=== PATIENT | female | born 2000 | race African-American/Black ===

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

== ENCOUNTER → 2018-06-09 | Outpatient (CLI) | payer OTHER ==
[~2018-06-09] MED LIST changes: -CEFAZOLIN IV 2,000 MG in SYRINGE 0 ML IV SCH; -CITRIC ACID/SODIUM CITRATE 15 ML UDC PO SCH; +DOCU-94 PO; -LACTATED RINGER'S 1000ML 1,000 ML IV SCH
== END | disposition home or self-care (01) ==
LOC: C.LABSPEC 15:57
PROVIDERS: ATTEND Obstetrics & Gynecology
DX: N91.2 Amenorrhea, unspecified (principal)

== ENCOUNTER 2019-12-20 05:44 | Inpatient (IN) ==
--- NOTE | 2019-12-18 15:25 | History & Physical Report ---
Date of Service December 18, 2019 Assessment & Plan (1) Previous delivery affecting , antepartum: Repeat section. The patient was counseled to the nature of the procedure including alternatives such as labor. Risks were discussed including bleeding infection injury to bowel bladder ureter vessels and even baby. The risks of internal organ injury were discussed as being higher with prior sections. Deep Vein Thrombosis, pulmonary embolus and breakdown of the incision discussed. Deep vein thrombosis pulmonary embolus hernia and failure of the incision to heal were discussed Patient verbalized understanding of this and was given ample time to ask qu estions History of Present Illness Chief Complaint: wishes repeat C/S. this will be her 3rd C/S. had thought about a tubal but she really is unsure, so I have discouraged this as to avoid regret. GDM with questionable BSG checking. Concern initially for IUGR, but this was later found not to be true. Primary Care Provider: NO PCP Allergies Allergy/AdvReac Type Severity Reaction Status Date / Time taylor Allergy Intermediate LIP/THROAT Verified 12/15/19 09:14 SWELLING mold Allergy Intermediate ITCHY Verified 12/15/19 09:14 EYES, RUNNY NOSE cat dander Allergy Mild ITCHY EYES Verified 12/15/19 09:14 lamotrigine Allergy Mild rash Verified 12/15/19 09:14 guanfacine AdvReac Intermediate BECOME OCD Verified 12/15/19 09:14 Dust Allergy Intermediate ITCHY Uncoded 09/16/19 22:46 EYES, RUNNY NOSE Home Medications Home Medications Medication Instructions Recorded Confirmed Type albuterol sulfate 90 mcg/actuation 1 - 2 puff INHALATION DIRECTED 05/21/19 12/15/19 History aerosol inhaler PRN #1 gm PNV [id number] 1 tab PO DAILY 08/22/19 12/15/19 History [ Gummies] ferrous sulfate 325 mg PO DAILY 12/13/19 12/15/19 History Patient History Surgical History (Updated 08/30/19 @ 09:03 by Daniel Carmichael Jr, MD, FACOG) S/P section Social History Preferred Language: [place] Ic [employer]er Standard Cells Required: No Beliefs That Will Affect Care: None marital status: Single Current Living Situation: Alone other: adopted Feels Safe at Home: Yes Smoking Status: Former smoker packs per day: 0.5 ; Hx Alcohol Use: Yes Hx Substance Use: Yes substance use type: marijuana Substance Use Type Other:: history not during pregancy Physical Exam Constitutional: WD/WN, vitals as above Respiratory: normal respiratory effort, lungs clear to auscultation Cardiovascular: RRR, no murmur, no edema Gastrointestinal (Abdomen): normal bowel sounds, soft, nontender, no hepatosplenomegaly Genitourinary: OB Exam Abdomen: + fundal height, + heart tones (134) and + vertex OB Exam Monitor Tracing: + external FHT monitor used Coding Level of Care Code None Diagnoses Previous delivery affecting , antepartum O34.219
[2019-12-20] MEDS ORDERED: LACTATED RINGER'S 1,000 ML IV SCH ×2 (05:45→06:00)
[2019-12-20] MEDS ORDERED: SODIUM CHLORIDE 0.9% 250 ML IV PRN (05:50)
[2019-12-20] MEDS ORDERED: CEFAZOLIN 2,000 MG in SYRINGE 0 ML IV SCH (06:00)
[2019-12-20] MEDS ORDERED: CITRIC ACID/SODIUM CITRATE 15 ML UDC PO SCH (06:00)
[2019-12-20 06:17] LABS: Basophils # (auto) 0.01 K/uL (0-0.2); Basophils % (auto) 0.2 %; Eosinophils # (auto) 0.13 K/uL (0-0.5); Eosinophils % (auto) 2.2 %; Hematocrit (blood only) 31.7 % (37-47); Hemoglobin 10.8 g/dL (12.0-16.0); Immature Granulocytes # (auto) 0.02 K/uL (0.00-0.02); Immature Granulocytes % (auto) 0.3 %; Lymphocytes # (auto) 1.64 K/uL (1.2-3.4); Mean Corpuscular Hemoglobin 26.5 pg (25-34); Mean Corpuscular Volume 77.7 fL (80-100); Mean Platelet Volume 9.3 fL (7.4-10.4); Monocytes # (auto) 0.43 K/uL (0.11-0.59); Monocytes % (auto) 7.3 %; Neutrophils # (auto) 3.63 K/uL (1.4-6.5); Platelet Count 201 K/uL (130-400); RDW Coefficient of Variation 14.8 % (11.5-14.5); RDW Standard Deviation 42.2 fL (36.4-46.3); Red Blood Count 4.08 M/uL (4.2-5.4); White Blood Count 5.86 K/uL (4.8-10.8)
[2019-12-20 06:18] LABS: Mean Corpuscular Hgb Conc 34.1 g/dL (32-36)
--- NOTE | 2019-12-20 07:20 | History & Physical Bridge Note ---
Date of Service December 20, 2019 History & Physical Bridge Note I have examined the patient, reviewed the History & Physical and in the interval since the performance of the History & Physical I have noted the following changes of clinical significance: no changes noted
--- NOTE | 2019-12-20 07:27 | Anesthesiology Consultation ---
Date of Service December 20, 2019 Assessment & Plan Chart Review Chart Review: Acceptable Risk for Surgery Consults Requested none History Surgery Operation Date: 12/20/19 07:30 Proposed Procedures p Section in LD - J. Mikel Peralta MD, FACOG Height/Weight Height: 5 ft 3 in Weight: 97.976 kg Allergies Allergy/AdvReac Type Severity Reaction Status Date / Time taylor Allergy Intermediate LIP/THROAT Verified 12/15/19 09:14 SWELLING mold Allergy Intermediate ITCHY Verified 12/15/19 09:14 EYES, RUNNY NOSE cat dander Allergy Mild ITCHY EYES Verified 12/15/19 09:14 lamotrigine Allergy Mild rash Verified 12/15/19 09:14 guanfacine AdvReac Intermediate BECOME OCD Verified 12/15/19 09:14 Dust Allergy Intermediate ITCHY Uncoded 09/16/19 22:46 EYES, RUNNY NOSE Medications Home Medications Medication Instructions Recorded Confirmed Last Taken albuterol sulfate 90 mcg/actuation 1 - 2 puff INHALATION DIRECTED 05/21/19 12/20/19 Unknown aerosol inhaler PRN #1 gm PNV [id number] 1 tab PO DAILY 08/22/19 12/20/19 12/19/19 08:00 [ Gummies] ferrous sulfate 325 mg PO DAILY 12/13/19 12/20/19 12/19/19 08:00 Active Medications Generic Name Dose Route Start Last Admin Trade Name Freq PRN Reason Stop Dose Admin Lactated Ringer's 1,000 mls @ 999 mls/hr 12/20/19 06:00 12/20/19 06:10 Lr IV 12/20/19 15:00 999 mls/hr .Q1H1M GEORGE Administration NPO Date Last Intake of Fluids: 12/20/19 Time Last Intake of Fluids: 05:30 Date Last Intake of Solids: 12/19/19 Time Last Intake of Solids: 18:30 Social History Smoking Status: Former smoker Hx Alcohol Use: Yes Hx Substance Use: Yes substance use type: marijuana Substance Use Type Other:: history not during pregancy Physical Exam Vital Signs Last Vital Signs Temp 36.3 C L 12/20/19 07:16 Pulse 98 H 12/20/19 07:16 Resp 20 12/20/19 07:16 BP 146/67 H 12/20/19 07:16 Testing Laboratory Results 12/20/19 05:54 Blood Type O Positive 12/20/19 05:54 Antibody Screen NEGATIVE 12/20/19 05:54
[2019-12-20] MEDS ORDERED: DiphenhydrAMINE HCL 50 MG/ML VIAL IV PRN (07:28)
[2019-12-20] MEDS ORDERED: NALBUPHINE HCL INJ 10 MG/ML AMP IV PRN (07:28)
[2019-12-20] MEDS ORDERED: MoRPHine SULFATE PF 1 MG/ML 10 ML AMP/VIAL INT SPINAL ONE (07:28)
[2019-12-20] MEDS ORDERED: ONDANSETRON INJ 2 MG/ML 2 ML VIAL IV PRN (07:28)
[2019-12-20] MEDS ORDERED: LACTATED RINGER'S 500 ML IV PRN (07:28)
[2019-12-20] MEDS ORDERED: NALOXONE HCL 0.08 MG in SYRINGE 1.8 ML IV PRN (07:28)
[2019-12-20] MEDS ORDERED: NALOXONE HCL 1 MG in SODIUM CHLORIDE 0.9% 1000ML 1,000 ML IV PRN (07:28)
[2019-12-20] MEDS ORDERED: NALOXONE HCL 0.4 MG/1 ML VIAL/CARP IV PRN (07:28)
[2019-12-20] MEDS ORDERED: ePHEDrine sulfate 50 MG/ML AMP IV PRN (07:28)
[2019-12-20] MEDS ORDERED: MoRPHine SULFATE 2 MG/ML CARP IV PRN (07:28)
[2019-12-20] MEDS ORDERED: HYDROmorphone INJ 0.5 MG/0.5 ML SYR IV PRN (07:28)
[2019-12-20] MEDS ORDERED: MEPERIDINE HCL 25 MG/ML CARP IV PRN (07:28)
[2019-12-20] MEDS ORDERED: NO NARCOTICS OR SEDATIVES SCH (07:30)
[2019-12-20] MEDS ORDERED: SODIUM CHLORIDE 0.9% 1000ML 1,000 ML IV SCH (07:30)
[2019-12-20] MEDS ORDERED: DC INTRASPINAL MORPHINE SCH (07:30)
[2019-12-20] MEDS ORDERED: ePHEDrine sulfate 50 MG/ML AMP ONE (07:32)
[2019-12-20] MEDS ORDERED: MoRPHine SULFATE PF 1 MG/ML 10 ML AMP/VIAL ONE (07:32)
[2019-12-20] MEDS ORDERED: OXYTOCIN 10 UNITS/ML VIAL ONE ×3 (07:32→08:11)
[2019-12-20 08:40] LABS: Base Excess Cord Arterial Bld -0.7 mEq/L (-9-1.8); CO2 Cord Arterial Blood 63 mmHg (39.1-73.5); HCO3 Cord Arterial Blood 28 mmol/L (19.7-28.5); PO2 Cord Arterial Blood 20 mmHg (4.1-31.7); pH Cord Arterial Blood 7.26 (7.1-7.38)
[2019-12-20 08:44] LABS: Base Excess Cord Venous Blood -1.4 mEq/L (-7.7-1.9); Cord Venous Blood HCO3 24 mmol/L (18.4-26.8); Cord Venous Blood PCO2 43 mmHg (30.4-57.2); Cord Venous Blood PO2 40 mmHg (14.1-43.3); Cord Venous Blood pH 7.37 (7.20-7.44); Oxygen Sat Cord Arterial Blood < 60.0 % (<60)
--- NOTE | 2019-12-20 08:44 | Operative Report ---
PG Post Operative Report Pre & Post Diagnosis Operation Date: 12/20/19 07:30 Pre-Op Diagnosis: repeat section gestational diabetes 39 completed weeks gestation Post-Op Diagnosis: low transverse uterine cesearean section delivery for viable female infant at 0810 I identified the patient and participated in the time-out.: Yes Procedure Operation Date: 12/20/19 07:30 Actual Procedures p Section for viable female in at 0810(Not Applicable) - Johanna Peralta MD, FACOG Surgeon Johanna Peralta MD, FACOG Production Assembly Operator Dr. Underwood Estimated Blood Loss 600 Findings Consistent with Post-Op Diagnosis Specimens cord gases and blood Description of Procedure Regional anesthetic was given by anesthesia patient had a Garcia catheter inserted by nursing patient was prepped and draped in supine position with a leftward tilt preoperative antibiotics were given timeout performed Pickups with teeth were used to test the skin site and it was found adequate for incision scalpel used to make a Pfannenstiel incision over the prior one cutting down through subcutaneous fat through the fascia fascia was then dissected laterally with the curved Gilmore's fascia was released superiorly and inferiorly from the rectus muscles with the curved Gilmore scissors, rectus muscle split peritoneal cavity entered in a superior location. Opening enlarged to allow exposure bladder retractor placed Metzenbaums used to dissect away the bladder flap low segment transverse incision made on the uterus with scalpel. IT SHOULD BE NOTED THE LOWER SEGMENT WAS KYUNG THIN. Entry was done bluntly with the solder deposit operator's finger hysterotomy incision extended with the solder deposit operator's finger in the usual fashion baby was delivered then by flexion of the head and pressure from the web production assistant on the abdomen mouth and then nares were suctioned baby was then delivered fully without difficulty without excessive force live vigorous cord clamped and cut cord gases obtained cord blood obtained placenta removed manually within ensured all placenta removed with a moist lap sponge uterus exteriorized IV Pitocin had been started by anesthesia and uterine tone improved. The uterus was closed in 2 layers first layer and 0 Monocryl running locked second layer 0 Monocryl nonlocked after generous irrigation and suction of the cul-de-sac and bladder flap regions hemostasis was excellent uterus was placed back in the peritoneal cavity and hemostasis was excellent rectus muscles were inspected and found to be dry fascia closed with 0 Vicryl subcutaneous fat closed with 3-0 Vicryl prior to this subcutaneous fat was irrigated skin closed with 4-0 subcuticular Monocryl incision Steri-Stripped urine was clear at the end of the procedure I attest to the content of the Intraoperative Record and any orders documented therein. Any exceptions are noted below.
[2019-12-20] MEDS ORDERED: ONDANSETRON INJ 2 MG/ML 2 ML VIAL ONE (08:57)
[2019-12-20] MEDS ORDERED: BENZOCAINE 20% AER SPR 82.5 GM CAN EXT PRN (09:51)
[2019-12-20] MEDS ORDERED: SENNA 8.6 MG TAB PO PRN (09:51)
[2019-12-20] MEDS ORDERED: DIPHTHERIA/TETANUS/PERTUSSIS 0.5 ML SYR/VIAL IM ONE (09:51)
[2019-12-20] MEDS ORDERED: MAGNESIUM HYDROXIDE SUSP 30 ML UDC PO PRN (09:51)
[2019-12-20] MEDS ORDERED: SUPERCREAM 0.870% 15 GM JAR EXT PRN (09:51)
[2019-12-20] MEDS ORDERED: HYDROCORTISONE ACETATE 25 MG SUPP PR PRN (09:51)
[2019-12-20] MEDS: OXYTOCIN 30 UNITS in LACTATED RINGER'S 1,000 ML IV SCH ×2 (10:06→19:14)
[2019-12-20] MEDS: KETOROLAC 30 MG/ML VIAL IV PRN ×2 (10:26→16:55)
[2019-12-20] MEDS ORDERED: PROMETHAZINE HCL 12.5 MG in SODIUM CHLORIDE 0.9% 50 ML IV PRN (12:03)
[2019-12-20] MEDS: SIMETHICONE 80 MG CHEW PO SCH ×3 (12:42→20:26)
--- NOTE | 2019-12-20 15:06 | Anesthesiology Progress Note ---
Date of Service December 20, 2019 Anesthesia Post Procedure Vital Signs Vital Signs: Temp Pulse Pulse Resp BP BP Pulse Ox 12/20/19 14:00 36.8 C 71 18 136/69 97 12/20/19 12:30 94 H 16 124/77 97 12/20/19 11:30 36.5 C 90 16 127/63 94 12/20/19 11:15 98 H 98 12/20/19 11:13 100 H 118/59 L 12/20/19 11:10 94 H 97 12/20/19 11:05 107 H 96 12/20/19 11:02 102 H 103/57 L 12/20/19 11:00 98 H 97 12/20/19 10:55 109 H 97 12/20/19 10:53 114 H 111/56 L 12/20/19 10:50 108 H 98 12/20/19 10:45 86 97 12/20/19 10:40 101 H 99 12/20/19 10:35 104 H 98 12/20/19 10:32 97 H 135/62 12/20/19 10:30 105 H 97 12/20/19 10:27 105 H 94 12/20/19 10:25 105 H 98 12/20/19 10:22 112 H 152/69 H 12/20/19 10:20 106 H 18 99 12/20/19 10:15 99 H 95 12/20/19 10:11 105 H 155/80 H 12/20/19 10:10 103 H 96 12/20/19 10:05 107 H 98 12/20/19 10:01 100 H 154/82 H 12/20/19 10:00 109 H 97 12/20/19 09:55 109 H 96 12/20/19 09:52 110 H 164/80 H 12/20/19 09:50 36.4 C L 110 H 16 100 12/20/19 09:45 108 H 98 12/20/19 09:44 108 H 94 12/20/19 09:42 111 H 159/85 H 12/20/19 09:40 110 H 20 98 12/20/19 09:35 108 H 97 12/20/19 09:32 112 H 150/72 H 12/20/19 09:30 115 H 98 12/20/19 09:25 107 H 97 02/24/20 09:22 109 H 158/70 H 12/20/19 09:20 115 H 18 98 12/20/19 09:15 109 H 97 12/20/19 09:12 110 H 121/57 L 12/20/19 09:10 110 H 18 98 12/20/19 09:05 104 H 98 12/20/19 09:03 106 H 126/60 12/20/19 09:00 100 H 20 97 12/20/19 08:55 106 H 97 12/20/19 08:52 107 H 136/62 12/20/19 08:50 36.4 C L 20 12/20/19 07:16 36.3 C L 98 H 20 146/67 H 12/20/19 06:04 95 H 133/60 12/20/19 06:00 36.7 C 18 Pulse Ox 12/20/19 14:00 12/20/19 12:30 12/20/19 11:30 94 12/20/19 11:15 12/20/19 11:13 12/20/19 11:10 12/20/19 11:05 12/20/19 11:02 12/20/19 11:00 12/20/19 10:55 12/20/19 10:53 12/20/19 10:50 12/20/19 10:45 12/20/19 10:40 12/20/19 10:35 12/20/19 10:32 12/20/19 10:30 12/20/19 10:27 12/20/19 10:25 12/20/19 10:22 12/20/19 10:20 12/20/19 10:15 12/20/19 10:11 12/20/19 10:10 12/20/19 10:05 12/20/19 10:01 12/20/19 10:00 12/20/19 09:55 12/20/19 09:52 12/20/19 09:50 12/20/19 09:45 12/20/19 09:44 12/20/19 09:42 12/20/19 09:40 12/20/19 09:35 12/20/19 09:32 12/20/19 09:30 12/20/19 09:25 12/20/19 09:22 12/20/19 09:20 12/20/19 09:15 12/20/19 09:12 12/20/19 09:10 12/20/19 09:05 12/20/19 09:03 12/20/19 09:00 12/20/19 08:55 12/20/19 08:52 12/20/19 08:50 12/20/19 07:16 12/20/19 06:04 12/20/19 06:00 Pain Intensity Bilateral Abdomen: Pain Intensity: 2 Transfer of Care Handoff Completed per policy Notes Mental Status: alert / awake / arousable and participated in evaluation Patient Amnestic to Procedure: Yes Nausea / Vomiting: improving with treatment Pain: adequately controlled Airway Patency, RR, SpO2: stable & adequate BP & HR: stable & adequate Hydration State: stable & adequate Anesthetic Complications: no major complications apparent
[2019-12-20] MEDS: DOCUSATE SODIUM 100 MG CAP PO SCH (20:26)
[2019-12-21] MEDS: KETOROLAC 30 MG/ML VIAL IV PRN (00:51)
[2019-12-21] MEDS ORDERED: DiphenhydrAMINE HCL 50 MG/ML VIAL IV PRN (01:28)
[2019-12-21] MEDS ORDERED: ONDANSETRON INJ 2 MG/ML 2 ML VIAL IV PRN (01:28)
[2019-12-21] MEDS ORDERED: KETOROLAC 30 MG/ML VIAL IV PRN (01:28)
[2019-12-21] MEDS ORDERED: PROMETHAZINE HCL 25 MG in SODIUM CHLORIDE 0.9% 50 ML IV PRN (01:28)
[2019-12-21] MEDS ORDERED: MEPERIDINE HCL 50 MG/ML CARP IV PRN (01:28)
--- NOTE | 2019-12-21 05:53 | Obstetrical Progress Note ---
Date of Service <Rajat Underwood MD - Last Filed: 12/21/19 07:15> December 21, 2019 Assessment & Plan <Rajat Underwood MD - Last Filed: 12/21/19 07:15> (1) Previous delivery affecting , antepartum: POD#1 - continue routine care - encourage ambulation, and oral intake - will have follow-up in 6 weeks Subjective <Rajat Underwood MD - Last Filed: 12/21/19 07:15> Ms. Ragland is a 19 y/o female ; POD #1 following delivery at 39+ weeks; doing well this morning; having minimal abdominal cramping/pain; voiding well; tolerating meals overnight; and able to ambulate some Review of Systems Constitutional: denies fever; chills; sweats; headache Respiratory: denies shortness of breath, difficulty breathing Cardiac: denies chest pain; palpitations; chest pressure Breast: denies breast pain : denies dysuria Physical Exam <Rajat Underwood MD - Last Filed: 12/21/19 07:15> General: alert; oriented; no acute distress Cardiac: RRR; no m/g/r Respiratory: CTAB a/p; no wheezes/rales/rhonchi; no increased work of breathing; symmetrical chest rise; no respiratory distress Abdomen: soft; NT/ND; bowel sounds positive; incision warm, dry, and intact without erythema or exudate Uterus: uterine fundus firm; palpable 1cm below umbilicus Lower extrem: no lower extremity edema or swelling; no deep calf pain; Bobby's sign negative b/l Results & Data <Rajat Underwood MD - Last Filed: 12/21/19 07:15> Vital Signs (Past 12 Hours) Vital Signs Temp Pulse Resp BP Pulse Ox 12/21/19 04:00 36.8 C 72 20 126/68 12/21/19 01:00 18 95 12/21/19 00:00 36.7 C 68 20 126/84 96 12/20/19 23:00 20 95 12/20/19 22:00 20 95 12/20/19 21:00 18 96 12/20/19 20:30 20 97 12/20/19 19:30 36.7 C 77 18 112/61 96 12/20/19 18:30 18 94 Laboratory Results 12/20/19 12/20/19 12/20/19 Range/Units 08:10 08:10 05:54 Cord ABG pH 7.26 (7.1-7.38) Cord ABG pCO2 63 (39.1-73.5) mmHg Cord ABG pO2 20 (4.1-31.7) mmHg Cord ABG HCO3 28 (19.7-28.5) mmol/L Cord ABG Base Excess -0.7 (-9-1.8) mEq/L Cord ABG O2 Sat < 60.0 (<60) % Cord VBG pH 7.37 (7.20-7.44) Cord VBG pCO2 43 (30.4-57.2) mmHg Cord VBG pO2 40 (14.1-43.3) mmHg Cord VBG HCO3 24 (18.4-26.8) mmol/L Cord VBG Base Excess -1.4 (-7.7-1.9) mEq/L Cord VBG O2 Sat 80.0 H (<68) % Barometric Pressure 732.8 732.7 mm/Hg Blood Gas Comments INFANT A A Blood Type O Positive Antibody Screen NEGATIVE Medications Administered Current Inpatient Medications Benzocaine (Dermoplast Pain Relieving [place]) 1 appln EXT UD PRN PRN Reason: use on skin as needed Stop: 01/19/20 09:50 Bisacodyl (Dulcolax) 5 mg PO 1999 [facility] Stop: 12/21/19 20:01 Bisacodyl (Dulcolax) 10 mg [place] PRN PRN PRN Reason: Constipation Stop: 01/21/20 08:43 Cocaine HCl (Supercream 0.870%) 1 gm EXT UD PRN PRN Reason: hemmorrhoidal inflammation Stop: 01/03/20 09:50 Diphenhydramine HCl (Benadryl Capsule) 25 mg PO QID PRN PRN Reason: Itching Stop: 01/20/20 01:27 Diphenhydramine HCl (Benadryl) 25 mg IV QID PRN PRN Reason: Itching Stop: 01/20/20 01:27 Docusate Sodium (Colace) 100 mg PO DAILY@08, [facility] Stop: 01/19/20 20:59 Last Admin: 12/20/19 20:26 Dose: 100 mg Documented by: Ferrous Sulfate (Feosol) 325 mg PO DAILY@08 [facility] Stop: 01/20/20 07:59 Hydrocortisone (Anusol Hc) 25 mg [place] BID PRN PRN Reason: Hemorrhoids Stop: 01/19/20 09:50 Promethazine HCl 25 mg/ Sodium (Chloride) 51 mls @ 204 mls/hr IV Q4H PRN PRN Reason: Nausea And Vomiting Stop: 01/20/20 01:27 Promethazine HCl 12.5 mg/ (Sodium Chloride) 50.5 mls @ 202 mls/hr IV Q4H PRN PRN Reason: Nausea And Vomiting Stop: 01/19/20 12:02 Last Admin: 12/20/19 12:40 Dose: 202 mls/hr Documented by: Ibuprofen (Motrin) 600 mg PO Q4H PRN PRN Reason: Pain Stop: 01/19/20 09:50 Last Admin: 12/21/19 06:00 Dose: 600 mg Documented by: Ketorolac Tromethamine (Toradol) 30 mg IV Q6H PRN PRN Reason: Pain Stop: 12/25/19 01:27 Magnesium Hydroxide (Milk Of Magnesia) 30 ml PO HS PRN PRN Reason: Constipation Stop: 01/19/20 09:50 Meperidine HCl (Demerol) 50 - 75 mg IV Q4H PRN PRN Reason: Pain Stop: 01/04/20 01:27 Ondansetron HCl (Zofran) 4 mg IV Q4H PRN PRN Reason: Nausea And Vomiting Stop: 01/20/20 01:27 Oxycodone/Acetaminophen (Percocet 5mg/325mg) 1 - 2 tab PO Q4H PRN PRN Reason: Pain Stop: 01/04/20 01:27 Last Admin: 12/21/19 05:59 Dose: 1 tab Documented by: Prenat Multivit/[place]/Iron/Folic Ac ( Vitamin) 1 tab PO DAILY@08 [facility] Stop: 01/20/20 07:59 Sennosides (Senokot) 17.2 mg PO HS PRN PRN Reason: Constipation Stop: 01/19/20 09:50 Simethicone (Mylicon) 80 mg PO DAILY@08,13,17,21 [facility] Stop: 01/19/20 12:59 Last Admin: 02/24/20 20:26 Dose: 80 mg Documented by: <Daniel Carmichael Jr, MD, FACOG - Last Filed: 12/21/19 07:41> Co-Signing Physician Notes Resident Physician Supervision Note: I was present with Dr. Underwood during the history and exam. I discussed the case with the resident and agree with the findings and plan as documented in the note. Any exceptions or clarifications are listed here: Routine care doing well. Documented By: Daniel Carmichael Jr, MD, FACOG Resident Activity Tracking <Rajat Underwood MD - Last Filed: 12/21/19 07:15> Resident Involvement: Resident Care Provided Care Provided: Adult Hospital Medicine
[2019-12-21] MEDS: OXYCODONE/ACETAMINOPHEN 5mg/325mg TAB PO PRN ×4 (05:59→20:28)
[2019-12-21] MEDS: IBUPROFEN 600 MG TAB PO PRN ×4 (06:00→20:28)
[2019-12-21 07:23] LABS: Basophils # (auto) 0.02 K/uL (0-0.2); Basophils % (auto) 0.3 %; Eosinophils # (auto) 0.18 K/uL (0-0.5); Eosinophils % (auto) 2.5 %; Hematocrit (blood only) 28.4 % (37-47); Hemoglobin 9.8 g/dL (12.0-16.0); Immature Granulocytes # (auto) 0.01 K/uL (0.00-0.02); Immature Granulocytes % (auto) 0.1 %; Lymphocytes # (auto) 1.58 K/uL (1.2-3.4); Lymphocytes % (auto) 22.1 %; Mean Corpuscular Hemoglobin 26.5 pg (25-34); Mean Corpuscular Hgb Conc 34.5 g/dL (32-36); Mean Corpuscular Volume 76.8 fL (80-100); Mean Platelet Volume 9.6 fL (7.4-10.4); Monocytes # (auto) 0.71 K/uL (0.11-0.59); Monocytes % (auto) 9.9 %; Neutrophils # (auto) 4.64 K/uL (1.4-6.5); Neutrophils % (auto) 65.1 %; Platelet Count 224 K/uL (130-400); RDW Coefficient of Variation 14.7 % (11.5-14.5); RDW Standard Deviation 41.7 fL (36.4-46.3); White Blood Count 7.14 K/uL (4.8-10.8)
[2019-12-21] MEDS: PRENATAL VITAMIN 1 TAB PO SCH (08:33)
[2019-12-21] MEDS: DOCUSATE SODIUM 100 MG CAP PO SCH ×2 (08:33→20:28)
[2019-12-21] MEDS: FERROUS SULFATE 325 MG TAB PO SCH (08:33)
[2019-12-21] MEDS: SIMETHICONE 80 MG CHEW PO SCH ×4 (08:33→21:01)
[2019-12-21] MEDS ORDERED: bisacodyL 5 MG TABEC PO SCH (20:00)
[2019-12-22] MEDS: IBUPROFEN 600 MG TAB PO PRN ×4 (00:33→21:12)
[2019-12-22] MEDS: OXYCODONE/ACETAMINOPHEN 5mg/325mg TAB PO PRN ×4 (00:34→21:13)
--- NOTE | 2019-12-22 06:12 | Obstetrical Progress Note ---
Date of Service <Rajat Underwood MD - Last Filed: 12/22/19 06:19> December 22, 2019 Assessment & Plan <Rajat Underwood MD - Last Filed: 12/22/19 06:19> (1) Previous delivery affecting , antepartum: POD#2 - continue routine care - encourage ambulation, and oral intake - will have follow-up in 6 weeks Subjective <Rajat Underwood MD - Last Filed: 12/22/19 06:19> Ms. Ragland is a 19 y/o female ; POD #2 following delivery at 39+ weeks; doing well this morning; having minimal abdominal cramping/pain; voiding well; tolerating meals overnight; and able to ambulate some Review of Systems Constitutional: denies fever; chills; sweats; headache Respiratory: denies shortness of breath, difficulty breathing Cardiac: denies chest pain; palpitations; chest pressure Breast: denies breast pain : denies dysuria Physical Exam <Rajat Underwood MD - Last Filed: 12/22/19 06:19> General: alert; oriented; no acute distress Cardiac: RRR; no m/g/r Respiratory: CTAB a/p; no wheezes/rales/rhonchi; no increased work of breathing; symmetrical chest rise; no respiratory distress Abdomen: soft; NT/ND; bowel sounds positive; incision warm, dry, and intact; without erythema, or tenderness Uterus: uterine fundus firm; palpable 3cm below umbilicus Lower extrem: no lower extremity edema or swelling; no deep calf pain; Bobby's sign negative b/l Results & Data <Rajat Underwood MD - Last Filed: 12/22/19 06:19> Vital Signs (Past 12 Hours) Vital Signs Temp Pulse Pulse Resp BP BP Pulse Ox 12/21/19 23:10 36.9 C 92 H 20 122/68 96 12/21/19 19:55 36.7 C 85 18 108/60 94 Laboratory Results 12/21/19 Range/Units 06:35 WBC 7.14 (4.8-10.8) K/uL RBC 3.70 L (4.2-5.4) M/uL Hgb 9.8 L (12.0-16.0) g/dL Hct 28.4 L (37-47) % MCV 76.8 L (80-100) fL MCH 26.5 (25-34) pg MCHC 34.5 (32-36) g/dL RDW Std Deviation 41.7 (36.4-46.3) fL RDW Coeff of Nan 14.7 H (11.5-14.5) % Plt Count 224 (130-400) K/uL MPV 9.6 (7.4-10.4) fL Immature Gran % (Auto) 0.1 % Neut % (Auto) 65.1 % Lymph % (Auto) 22.1 % [place] % (Auto) 9.9 % Eos % (Auto) 2.5 % Baso % (Auto) 0.3 % Immature Gran # (Auto) 0.01 (0.00-0.02) K/uL Neut # (Auto) 4.64 (1.4-6.5) K/uL Lymph # (Auto) 1.58 (1.2-3.4) K/uL [place] # (Auto) 0.71 H (0.11-0.59) K/uL Eos # (Auto) 0.18 (0-0.5) K/uL Baso # (Auto) 0.02 (0-0.2) K/uL Medications Administered Current Inpatient Medications Benzocaine (Dermoplast Pain Relieving [place]) 1 appln EXT UD PRN PRN Reason: use on skin as needed Stop: 01/19/20 09:50 Bisacodyl (Dulcolax) 10 mg [place] PRN PRN PRN Reason: Constipation Stop: 01/21/20 08:43 Cocaine HCl (Supercream 0.870%) 1 gm EXT UD PRN PRN Reason: hemmorrhoidal inflammation Stop: 01/03/20 09:50 Diphenhydramine HCl (Benadryl Capsule) 25 mg PO QID PRN PRN Reason: Itching Stop: 01/20/20 01:27 Diphenhydramine HCl (Benadryl) 25 mg IV QID PRN PRN Reason: Itching Stop: 01/20/20 01:27 Docusate Sodium (Colace) 100 mg PO DAILY@08,21 [facility] Stop: 01/19/20 20:59 Last Admin: 12/21/19 20:28 Dose: 100 mg Documented by: Ferrous Sulfate (Feosol) 325 mg PO DAILY@08 [facility] Stop: 01/20/20 07:59 Last Admin: 12/21/19 08:33 Dose: 325 mg Documented by: Hydrocortisone (Anusol Hc) 25 mg [place] BID PRN PRN Reason: Hemorrhoids Stop: 01/19/20 09:50 Promethazine HCl 25 mg/ Sodium (Chloride) 51 mls @ 204 mls/hr IV Q4H PRN PRN Reason: Nausea And Vomiting Stop: 01/20/20 01:27 Promethazine HCl 12.5 mg/ (Sodium Chloride) 50.5 mls @ 202 mls/hr IV Q4H PRN PRN Reason: Nausea And Vomiting Stop: 01/19/20 12:02 Last Admin: 12/20/19 12:40 Dose: 202 mls/hr Documented by: Ibuprofen (Motrin) 600 mg PO Q4H PRN PRN Reason: Pain Stop: 01/19/20 09:50 Last Admin: 12/22/19 04:55 Dose: 600 mg Documented by: Ketorolac Tromethamine (Toradol) 30 mg IV Q6H PRN PRN Reason: Pain Stop: 12/25/19 01:27 Magnesium Hydroxide (Milk Of Magnesia) 30 ml PO HS PRN PRN Reason: Constipation Stop: 01/19/20 09:50 Meperidine HCl (Demerol) 50 - 75 mg IV Q4H PRN PRN Reason: Pain Stop: 01/04/20 01:27 Ondansetron HCl (Zofran) 4 mg IV Q4H PRN PRN Reason: Nausea And Vomiting Stop: 01/20/20 01:27 Oxycodone/Acetaminophen (Percocet 5mg/325mg) 1 - 2 tab PO Q4H PRN PRN Reason: Pain Stop: 01/04/20 01:27 Last Admin: 12/22/19 04:55 Dose: 1 tab Documented by: [place] Multivit/[place]/Iron/Folic Ac ( Vitamin) 1 tab PO DAILY@08 [facility] Stop: 01/20/20 07:59 Last Admin: 12/21/19 08:33 Dose: 1 tab Documented by: Sennosides (Senokot) 17.2 mg PO HS PRN PRN Reason: Constipation Stop: 01/19/20 09:50 Simethicone (Mylicon) 80 mg PO DAILY@08,13,17,21 [facility] Stop: 01/19/20 12:59 Last Admin: 12/21/19 21:01 Dose: 80 mg Documented by: <Charo Richey MD, FACOG - Last Filed: 12/22/19 07:22> Co-Signing Physician Notes Resident Physician Supervision Note: I interviewed and examined the patient. Discussed with Dr. Underwood and agree with findings and plan as documented in the note. Any exceptions or clarifications are listed here: Doing well. Notes some right ankle discomfort, likely MS or swelling. Reassured. Plan d/c tomorrow. Routine care. Documented By: Charo Richey MD, FACOG Resident Activity Tracking <Rajat Underwood MD - Last Filed: 12/22/19 06:19> Resident Involvement: Resident Care Provided Care Provided: Adult Hospital Medicine
[2019-12-22] MEDS ORDERED: POLYETHYLENE (MIRALAX) 17 GM PACK PO PRN (07:23)
[2019-12-22] MEDS: SIMETHICONE 80 MG CHEW PO SCH ×4 (08:13→21:11)
[2019-12-22] MEDS: FERROUS SULFATE 325 MG TAB PO SCH (08:13)
[2019-12-22] MEDS: PRENATAL VITAMIN 1 TAB PO SCH (08:14)
[2019-12-22] MEDS: DOCUSATE SODIUM 100 MG CAP PO SCH ×2 (08:14→21:12)
[2019-12-22] MEDS ORDERED: bisacodyL 10 MG SUPP PR PRN (08:44)
[2019-12-22 09:34] LABS: Hemoglobin 10.3 g/dL (12.0-16.0)
--- NOTE | 2019-12-23 07:01 | Obstetrical Progress Note ---
Date of Service <Rajat Underwood MD - Last Filed: 12/23/19 07:57> December 23, 2019 Assessment & Plan <Rajat Underwood MD - Last Filed: 12/23/19 07:57> (1) Previous delivery affecting , antepartum: POD#3 - continue routine care - encourage ambulation, and oral intake - based off family history of clots, ordered duplex of b/l lower extremities - will have follow-up in [address] Peralta Subjective <Rajat Underwood MD - Last Filed: 12/23/19 07:57> Ms. Ragland is a 19 y/o female ; POD #3 following delivery at 39+ weeks; doing well this morning; having minimal abdominal cramping/pain, feels like she has some fullness in her abdomen that is consistent with how she feels when she has not had a bowel movement for a couple days; voiding well, passing gas; tolerating meals overnight; and able to ambulate around unit Review of Systems Constitutional: denies fever; chills; sweats; headache Respiratory: denies shortness of breath, difficulty breathing Cardiac: denies chest pain; palpitations; chest pressure Breast: denies breast pain : denies dysuria Physical Exam <Rajat Underwood MD - Last Filed: 12/23/19 07:57> General: alert; oriented; no acute distress Cardiac: RRR; no m/g/r Respiratory: CTAB a/p; no wheezes/rales/rhonchi; no increased work of breathing; symmetrical chest rise; no respiratory distress Abdomen: soft; NT/ND; bowel sounds positive; incision warm, dry, and intact, without erythema or exudate Uterus: uterine fundus firm; palpable 3cm below umbilicus Lower extrem: 1+ lower extremity edema; no deep calf pain; Bobby's sign negative b/l Results & Data <Rajat Underwood MD - Last Filed: 12/23/19 07:57> Vital Signs (Past 12 Hours) Vital Signs Temp Pulse Resp BP 12/22/19 23:30 36.6 C 92 H 20 123/75 12/22/19 20:55 36.8 C 93 H 16 131/74 Laboratory Results 12/22/19 Range/Units 09:21 Hgb 10.3 L (12.0-16.0) g/dL Hct 30.0 L (37-47) % Medications Administered Current Inpatient Medications Benzocaine (Dermoplast Pain Relieving [place]) 1 appln EXT UD PRN PRN Reason: use on skin as needed Stop: 01/19/20 09:50 Bisacodyl (Dulcolax) 10 mg [place] PRN PRN PRN Reason: Constipation Stop: 01/21/20 08:43 Cocaine HCl (Supercream 0.870%) 1 gm EXT UD PRN PRN Reason: hemmorrhoidal inflammation Stop: 01/03/20 09:50 Diphenhydramine HCl (Benadryl Capsule) 25 mg PO QID PRN PRN Reason: Itching Stop: 01/20/20 01:27 Diphenhydramine HCl (Benadryl) 25 mg IV QID PRN PRN Reason: Itching Stop: 01/20/20 01:27 Docusate Sodium (Colace) 100 mg PO DAILY@08,21 [facility] Stop: 01/19/20 20:59 Last Admin: 12/22/19 21:12 Dose: 100 mg Documented by: Ferrous Sulfate (Feosol) 325 mg PO DAILY@08 [facility] Stop: 01/20/20 07:59 Last Admin: 12/22/19 08:13 Dose: 325 mg Documented by: Hydrocortisone (Anusol Hc) 25 mg [place] BID PRN PRN Reason: Hemorrhoids Stop: 01/19/20 09:50 Promethazine HCl 25 mg/ Sodium (Chloride) 51 mls @ 204 mls/hr IV Q4H PRN PRN Reason: Nausea And Vomiting Stop: 01/20/20 01:27 Promethazine HCl 12.5 mg/ (Sodium Chloride) 50.5 mls @ 202 mls/hr IV Q4H PRN PRN Reason: Nausea And Vomiting Stop: 01/19/20 12:02 Last Admin: 12/20/19 12:40 Dose: 202 mls/hr Documented by: Ibuprofen (Motrin) 600 mg PO Q4H PRN PRN Reason: Pain Stop: 01/19/20 09:50 Last Admin: 12/22/19 21:12 Dose: 600 mg Documented by: Ketorolac Tromethamine (Toradol) 30 mg IV Q6H PRN PRN Reason: Pain Stop: 12/25/19 01:27 Magnesium Hydroxide (Milk Of Magnesia) 30 ml PO HS PRN PRN Reason: Constipation Stop: 01/19/20 09:50 Meperidine HCl (Demerol) 50 - 75 mg IV Q4H PRN PRN Reason: Pain Stop: 01/04/20 01:27 Ondansetron HCl (Zofran) 4 mg IV Q4H PRN PRN Reason: Nausea And Vomiting Stop: 01/20/20 01:27 Oxycodone/Acetaminophen (Percocet 5mg/325mg) 1 - 2 tab PO Q4H PRN PRN Reason: Pain Stop: 01/04/20 01:27 Last Admin: 12/22/19 21:13 Dose: 1 tab Documented by: Polyethylene Glycol (Miralax Powder Packet) 17 gm PO DAILY PRN PRN Reason: Constipation Stop: 01/21/20 07:22 Prenat Multivit/[place]/Iron/Folic Ac ( Vitamin) 1 tab PO DAILY@08 [facility] Stop: 01/20/20 07:59 Last Admin: 12/22/19 08:14 Dose: 1 tab Documented by: Sennosides (Senokot) 17.2 mg PO HS PRN PRN Reason: Constipation Stop: 01/19/20 09:50 Simethicone (Mylicon) 80 mg PO DAILY@08,13,17,21 [facility] Stop: 01/19/20 12:59 Last Admin: 12/22/19 21:11 Dose: 80 mg Documented by: <Dora Pablo MD, FACOG - Last Filed: 12/23/19 08:16> Co-Signing Physician Notes Resident Physician Supervision Note: I was present with Dr. Underwood during the history and exam. I discussed the case with the resident and agree with the findings and plan as documented in the note. Any exceptions or clarifications are listed here: pt doing well, eating voiding and ambulating. Constipated and feels a little bloated but passing gas and tolerating po. She is using percocet for pain meds. Aware to wean to off. Wants to go home. She notes bilateral calf pain and swelling on and off. She had a "knot" on one part of her lateral LE but now its gone. No cp or sob but expresses concern due to fam history of clots and pe and namely in her m om(after she gave ). Exam findings include abd--soft ff 2down nt, incision c/d/i with one remaining steri(she says others fell off in shower). LE are equal in size. No cord or erythema noted. Trace peripheral swelling. Will obtain duplex bilateral LE. Pt notes her sister has had a dvt and never been but she herself has never had dvt and this is her 3rd . Explained that even if the study today is negative and she goes home, she should call or return with any concerns and reviewed them at length. Routine instructions reviewed. f/u 6 wk pp check. script sent and ok on papdmp. Documented By: Dora Pablo MD, FACOG Resident Activity Tracking <Rajat Underwood MD - Last Filed: 12/23/19 07:57> Resident Involvement: Resident Care Provided Care Provided: OB Delivery
[2019-12-23] MEDS: IBUPROFEN 600 MG TAB PO PRN ×2 (07:06→15:11)
[2019-12-23] MEDS: OXYCODONE/ACETAMINOPHEN 5mg/325mg TAB PO PRN ×2 (07:07→15:12)
[2019-12-23] MEDS: SIMETHICONE 80 MG CHEW PO SCH ×2 (08:36→12:36)
[2019-12-23] MEDS: PRENATAL VITAMIN 1 TAB PO SCH (08:36)
[2019-12-23] MEDS: FERROUS SULFATE 325 MG TAB PO SCH (08:36)
[2019-12-23] MEDS: DOCUSATE SODIUM 100 MG CAP PO SCH (08:36)
[2019-12-23] MEDS ORDERED: POLYETHYLENE (MIRALAX) 17 GM PACK PO SCH (09:00)
--- NOTE | 2019-12-23 14:39 | Ultrasound Report ---
BILATERAL LOWER EXTREMITY VENOUS DOPPLER CLINICAL HISTORY: post- calf pain COMPARISON STUDY: No previous studies for comparison. TECHNIQUE: Sonography of the deep venous system of the bilateral lower extremities was performed. Co mpression and augmentation were evaluated. FINDINGS: The bilateral common femoral, superficial femoral and popliteal veins were compressible. A ugmentation was normal. Flow was shown within the deep calf vessels. IMPRESSION: No evidence of deep venous thrombus within the bilateral lower extremities. ACT 112: Negative or not required by law. Electronically signed by: Ambrosio Young M.D. 12/23/2019 2:37 PM
--- NOTE | 2019-12-24 16:58 | Discharge Summary ---
Date of Service December 24, 2019 Admission Exam (Per Admitting) Constitutional WD/WN, vitals as above Respiratory normal respiratory effort, lungs clear to auscultation Cardiovascular RRR, no murmur, no edema Gastrointestinal (Abdomen) normal bowel sounds, soft, nontender, no hepatosplenomegaly incision CDI ext neg Discharge Data Consultations 12/20/19 05:45 Consult Anesthesiology Stat Procedures Performed Operation Date: 12/20/19 07:30 Actual Procedures p Section for viable female in at 0810(Not Applicable) - Johanna Peralta MD, [facility] [place], [place] Hospital Course (1) Previous delivery affecting , antepartum: Postoperative from section patient meets discharge criteria as she is ambulating well tolerating an oral diet has minimal bleeding and no extremity pain. Discharge instructions were reviewed and prescriptions were sent to her pharmacy of choice patient advised to call with any concerns and follow-up in the office discussed Note, negative doppler prior to discharge on legs Coding Level of Care Code None Diagnoses Previous delivery affecting , antepartum O34.219
== END 2019-12-23 16:20 | disposition home or self-care (01) | DRG 788 ==
LOC: 4S1 05:44 → EDSTATUS 07:30 → 4S2 11:30

== ENCOUNTER 2022-02-06 06:20 | Inpatient (IN) ==
--- NOTE | 2022-02-04 11:06 | Anesthesiology Consultation ---
Date of Service February 04, 2022 Assessment & Plan (1) Encounter for pre-operative examination: Chart Review Chart Review: Acceptable Risk for Surgery -We will leave BSG date of procedure to anesthesiologist discretion (history of gestational diabetes) Per nursing assessment 02/01/2022, pt has traveled to [place], [place] in the past 30 days. Pt and her children currently have upper respiratory issues (pt chris michael has mild cough, congestion and runny nose- symptoms improving). Feels symptoms related to cold or allergies. Pt states her children were tested for Covid an were negative but does not know the date of Covid testing or location. Pt unsure if she has had Covid infection in the past 90 days- states Covid testing would have been done at [facility]- no noted Covid positive tests in the past 90 days in [facility] and [employer] system. Pt is NOT vaccinated for Covid. Pt initially told nursing she did not need preop Covid testing - after review of chart- pt with upper respiratory symptoms and no noted positive Covid test in the past 90 days- pt needs Covid test prior to - did discuss with OB office- they will reach out to patient to get preop Covid testing done prior to - will await results. Patient seen by cardiology 04/12/2021 = seen for history of chest pain and family history of cardiovascular disease. Patient with history of substernal sharp stabbing chest painshospital records reviewedEKG demonstrated NSR without acute changes. D-dimer was negative. Other labs unremarkable. CXR without acute process. Symptoms resolved with 1 dose of aspirin. Chest pain has been ongoing x2 years. Usually occurs at night when lying supine. ZIO monitor is currently pendingwill await these results. Recommend 2D echo to assess structural heart disease, LV function, valvular heart disease rule out congenital abnormalities. Also recommended CV genetic testing given diverse family history of cardiovascular issues. Her atypical chest pain does not appear to be cardiac related based on description and present for many years. Symptoms have characteristics suggestive of GERD. (No Zio monitor results scanned into system- patient never had ECHO or genetic testing done per review of [facility] records- did not follow back up with cardio) History Surgery Operation Date: 02/06/22 07:30 Proposed Procedures p Section in LD (Delivery of Baby through Abdominal Incision) - Mary Whitney MD s Post Tubal Ligation Labor & Deliv - Mary Whitney MD Height/Weight Height: 5 ft 2.5 in Weight: 102.058 kg Allergies Allergy/AdvReac Type Severity Reaction Status Date / Time cat dander Allergy Unknown ITCHY EYES Verified 02/06/22 06:31 taylor Allergy Unknown LIP/THROAT Verified 02/06/22 06:31 SWELLING lamotrigine Allergy Unknown rash Verified 02/06/22 06:31 mold Allergy Unknown ITCHY Verified 02/06/22 06:31 EYES, RUNNY NOSE guanfacine AdvReac Unknown BECOME OCD Verified 02/06/22 06:31 Dust Allergy Unknown ITCHY Uncoded 02/06/22 06:31 EYES, RUNNY NOSE Medications Home Medications Medication Instructions Recorded Confirmed Last Taken albuterol sulfate 90 mcg/actuation 1 - 2 puff INHALATION DIRECTED 05/21/19 02/05/22 Unknown aerosol inhaler PRN #1 gm [id number] 1 mg 1 tab PO DAILY 11/28/21 02/06/22 02/05/22 tablet Active Medications Generic Name Dose Route Start Last Admin Trade Name Freq PRN Reason Stop Dose Admin Lactated Ringer's 1,000 mls @ 999 mls/hr 02/06/22 06:15 02/06/22 06:30 Lr IV 02/06/22 07:15 999 mls/hr .[id number] GEORGE Administration Past Medical History Medical History Acid reflux ADHD Asthma CONTROLLED Back problem Bipolar disorder Depression Gestational diabetes Heartburn during History of COVID-19 - MUTLIPLE TIMES IN HX PER PT- NO NOTED POSITIVE COVID TESTS ON FILE IN [facility] AND [facility] IN THE PAST 90 DAYS - PT HAS MILD COUGH AND CONGESTION, RUNNY NOSE CURRENTLY- PT REPORTS BELIEVES SYMPTOMS TO BE UNRELATED TO HX COVID History of recent hospitalization ADMITTED TO [facility] 01/29/22 SECONDARY TO DECREASED MOVEMENT- FELT SECONDARY TO DEHYDRATION History of seizures as a child AGE 8, HX MEDS, LAST SEIZURE 8 YR OLD History of treatment by mental health professional PT REPORTS MULTIPLE MENTAL HEALTH HX DX ... 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 - SEEN BY [facility] CARDIO 03/2021- RECOMMENDED ECHO AND CV GENETIC TESTING (PRESUME D PT NEVER HAD DONE- NO RESULTS IN S). PER CARDIO NOTE 03/2021- HOLTER REPORT PENDING (NO RESULTS AVAILABLE) - NO FURTHER APPOINTMENTS DUE TO COVID 19 AND LEARNING MANAGER. Past medical history not known due to adoption PT ADOPTED, FAMILY MED HX KNOWLEDGE LIMITED Post-traumatic stress disorder SOB (shortness of breath) on exertion Past Family History Family History Mother Deep vein thrombosis Clotting disorder Pulmonary embolism Sister Deep vein thrombosis Heart disease Hypertension Grandmother Breast cancer Denies family history of Ovarian cancer Prostate cancer Colorectal cancer Past Surgical History Surgical History History of foot surgery RIGHT S/P section HX X3 Mcintire teeth removed Social History Smoking Status: Former smoker tobacco type: cigarettes Smoking End Date: BEFORE I WAS - QUIT SOON I FOUND OUT Hx Alcohol Use: No alcohol intake frequency: other Hx Substance Use: No substance use type: does not use Substance Use Type Other:: history not during pregancy Physical Exam Vital Signs Last Vital Signs Temp 36.8 C 02/06/22 06:32 Pulse 107 H 02/06/22 06:25 Resp 18 02/06/22 06:32 BP 134/72 02/06/22 06:25 Lab Results Anesthesia Preop Results Results Anesthesia Widget: WBC 5.19 K/uL (4.8-10.8) 02/06/22 Hgb 10.8 g/dL (12.0-16.0) L 02/06/22 Hct 31.6 % (37-47) L 02/06/22 Plt 270 K/uL (130-400) 02/06/22 Na 133 mmol/L (136-145) L 12/29/21 K 3.6 mmol/L (3.5-5.1) 12/29/21 Cl 104 mmol/L (98-107) 12/29/21 CO2 23 mmol/L (21-32) 12/29/21 BUN 5 mg/dl (6-23) L 12/29/21 Creat 0.52 mg/dl (0.6-1.2) L 12/29/21 POC Glucose 99 mg/dl (70-99) 02/06/22 Testing Laboratory Results 02/06/22 06:27 02/06/22 02/06/22 06:32 06:30 POC Glucose 99 235 H 02/05 covid negative Electrocardiogram Date: 12/29/21 Findings: + ST @ (127bpm ) Otherwise normal EKG per cardio. (Pt in ER at time of EKG- seen for chest pain that is worsened after eating- troponin negative, CTA negative, EKG showed no ischemic changes- tachycardia trended downwards with IV fluids - suspect chest discomfort is from gastritis per 12/29/21 ER note) Chest X-Ray Date: 04/03/21 Findings: + NAD 1 view CXR Other Testing Chest CTA 12/29/2021 = no evidence of pulmonary embolism. Subcentimeter axillary nodes were likely physiologic.
[~2022-02-06 06:20] MED LIST changes: +CITRIC ACID/SODIUM CITRATE 15 ML UDC PO SCH; -DOCU-94 PO; +LACTATED RINGER'S 1,000 ML IV SCH; -PRENTAB26 PO; +SODIUM CHLORIDE 0.9% 250 ML IV PRN; -VNTHFA/IN INH
[2022-02-06 06:44] LABS: Basophils # (auto) 0.01 K/uL (0-0.2); Basophils % (auto) 0.2 %; Eosinophils # (auto) 0.09 K/uL (0-0.5); Eosinophils % (auto) 1.7 %; Hematocrit (blood only) 31.6 % (37-47); Hemoglobin 10.8 g/dL (12.0-16.0); Lymphocytes # (auto) 1.42 K/uL (1.2-3.4); Lymphocytes % (auto) 27.4 %; Mean Corpuscular Hemoglobin 25.4 pg (25-34); Mean Corpuscular Hgb Conc 34.2 g/dL (32-36); Mean Corpuscular Volume 74.2 fL (80-100); Mean Platelet Volume 9.5 fL (7.4-10.4); Monocytes # (auto) 0.61 K/uL (0.11-0.59); Monocytes % (auto) 11.8 %; Neutrophils # (auto) 3.06 K/uL (1.4-6.5); Neutrophils % (auto) 58.9 %; Platelet Count 270 K/uL (130-400); RDW Coefficient of Variation 15.8 % (11.5-14.5); RDW Standard Deviation 42.9 fL (36.4-46.3); Red Blood Count 4.26 M/uL (4.2-5.4); White Blood Count 5.19 K/uL (4.8-10.8)
[2022-02-06] MEDS ORDERED: SODIUM CHLORIDE 0.9% 250 ML IV PRN (07:02)
[2022-02-06] MEDS ORDERED: MoRPHine SULFATE PF 1 MG/ML 10 ML AMP/VIAL ONE (07:08)
--- NOTE | 2022-02-06 07:20 | History & Physical Bridge Note ---
Date of Service February 06, 2022 History & Physical Bridge Note I have examined the patient, reviewed the History & Physical and in the interval since the performance of the History & Physical I have noted the following changes of clinical significance: no changes noted. Still desires Tubal Ligation.
[2022-02-06] MEDS ORDERED: METHYLERGONOVINE MALEATE 0.2 MG/ML AMP ONE (07:32)
[2022-02-06] MEDS ORDERED: MoRPHine SULFATE 2 MG/ML CARP IV PRN (07:44)
[2022-02-06] MEDS ORDERED: NALOXONE HCL 1 MG in SODIUM CHLORIDE 0.9% 1000ML 1,000 ML IV PRN (07:44)
[2022-02-06] MEDS ORDERED: LACTATED RINGER'S 500 ML IV PRN (07:44)
[2022-02-06] MEDS ORDERED: MoRPHine SULFATE PF 1 MG/ML 10 ML AMP/VIAL INT SPINAL ONE (07:44)
[2022-02-06] MEDS ORDERED: ePHEDrine sulfate 50 MG/ML AMP IV PRN (07:44)
[2022-02-06] MEDS ORDERED: NALOXONE HCL 0.4 MG/1 ML VIAL/CARP IV PRN (07:44)
[2022-02-06] MEDS ORDERED: PROMETHAZINE HCL 12.5 MG in SODIUM CHLORIDE 0.9% 50 ML IV PRN (07:44)
[2022-02-06] MEDS ORDERED: ONDANSETRON INJ 2 MG/ML 2 ML VIAL IV PRN (07:44)
[2022-02-06] MEDS ORDERED: NALOXONE HCL 0.08 MG in SYRINGE 1.8 ML IV PRN (07:44)
[2022-02-06] MEDS ORDERED: diphenhydrAMINE 50 MG/ML VIAL IV PRN (07:44)
[2022-02-06] MEDS ORDERED: DC INTRASPINAL MORPHINE SCH (07:45)
[2022-02-06] MEDS ORDERED: SODIUM CHLORIDE 0.9% 1000ML 1,000 ML IV SCH (07:45)
[2022-02-06] MEDS ORDERED: NO NARCOTICS OR SEDATIVES SCH (07:45)
[2022-02-06] MEDS ORDERED: OXYTOCIN 10 UNITS/ML 10ML VIAL ONE ×3 (07:58→08:38)
[2022-02-06] MEDS ORDERED: METOCLOPRAMIDE HCL INJ 5 MG/ML 2 ML VIAL ONE (07:58)
[2022-02-06] MEDS ORDERED: PROPOFOL IV EMULSION 10 MG/ML 20 ML VIAL IV ONE (07:58)
[2022-02-06] MEDS ORDERED: ePHEDrine sulfate 50 MG/ML SYR ONE (07:58)
[2022-02-06] MEDS ORDERED: LIDOCAINE 2% MPF LOCAL 5 ML VIAL INFIL ONE (07:58)
[2022-02-06] MEDS ORDERED: PHENYLEPHRINE 100MCG/ML 5ML SYR ONE (07:58)
[2022-02-06] MEDS ORDERED: ONDANSETRON INJ 2 MG/ML 2 ML VIAL ONE (07:58)
--- NOTE | 2022-02-06 09:17 | Operative Report ---
PG Post Operative Report Pre & Post Diagnosis Operation Date: 02/06/22 07:30 Pre-Op Diagnosis: History of Section, Desire for sterilization Post-Op Diagnosis: same plus uterine window I identified the patient and participated in the time-out.: Yes Procedure Operation Date: 02/06/22 07:30 Actual Procedures Low Transverse Repeat Section Tubal Ligation, Bilateral, Modified [place] method Surgeon Mary Whitney MD Information Technology Teacher Marline MCNAIR Estimated Blood Loss 500 Findings Consistent with Post-Op Diagnosis Specimens Placenta, Cord blood Anesthesia Type Spinal Complications none Description of Procedure The patient was placed operating table in the supine position with a leftward tilt. She was prepped and draped in standard sterile fashion. The anesthetic was tested and found to be adequate. A time-out was held, identifying correct patient, procedure, positioning and preoperative antibiotics. There were no concerns. A Pfannenstiel skin incision was made with a knife and taken down to the underlying layer of fascia. Significant scar tissue was encountered throughout the dissection. The fascia was incised in the midline with the knife and taken out laterally with scissors. The superior edge of the fascial incision was grasped, elevated and dissected off the underlying rectus both superiorly and inferiorly. The muscles were already noted to be in the midline. The peritoneum was also noted to be opened during the process of fascial dissection, as the midline area contained adhesions of fascia directly to peritoneum with no intervening muscle layer. Exploration with surgeons' fingers was used, along with cold sharp dissection, to free the fascia and create the usual Pfannensteil opening. The incision was then stretched to ensure adequate access for delivery. The bladder retractor was placed. The vesicouterine peritoneum was identified, entered with scissors and taken out laterally with scissors, then bluntly mobilized downward as a bladder flap. The lower uterine segment was ballooning and so thin that vernix and hair were easily visible prior to hysterotomy, through the extremely thin myometrium which remained. A hysterotomy incision was created transversely in the lower uterine segment, with entry to th e amnion being unavoidable on the first swipe with a scalpel, but due to the ballooning outward of the uterine wall, no risk of injury to the underlying structures was present. Clear amniotic fluid was encountered. The mechanical press operator's hand was used to elevate the head to the hysterotomy. The head was delivered using mild fundal pressure, and the shoulders and body followed. Due to the remarkably large size of the infant, some effort on the part of both delivering physicians was required; the head delivered easily with the usual arrangement of Dr. Whitney elevating the head and Dr. Horan applying fundal pressure, but delivery of the shoulders and body was only accomplished by Dr. Horan placing a finger under the anterior shoulder / axilla, while fundal pressure was applied from Dr. Whitney's side, and then Dr. Whitney delivered the posterior shoulder by reducing the patient's mons manually while Dr. Horan applied fundal pressure. The cord was clamped and cut and the was then handed off to the awaiting furnace reliner. Cord blood was obtained. The was ultimately found to weigh 11 lbs, 11 oz at . The placenta was expressed from the uterus, and was also noted to be of remarkable size and vascularity. The uterus was exteriorized and cleared of all clot and debris with moistened laparotomy sponges. The hysterotomy incision was repaired in two layers, the first in a running locked layer, the second in an imbricating layer. Milagros was applied. The ovaries and tubes were examined bilaterally, and ovaries were seen to be elongated/enlarged with a "tapioca pudding" appearance suggestive of PCOS. A modified Raymond tubal ligation was performed by elevating each fallopian tube using a Lane clamp, isolating a knuckle of tube using a double suture- ligature of 0-chromic, and excising the knuckle. The uterus was gently replaced in the abdomen, and the gutters were examined to confirm the tubal ligation sutures remained intact. A final inspection of the hysterotomy revealed good hemostasis. The rectus muscles were allowed to reapproximate naturally. The fascia was then reapproximated with 1 Vicryl in a running nonlocked manner. The fascia was examined and found to be free of defect following closure. The subcutaneous tissue was copiously irrigated and reapproximated with 0-chromic, then the skin edges were closed with 4-0 monocryl in a subcuticular fashion. A dermabond dressing was applied. The giron was found to be draining clear yellow urine at completion of the procedure. I attest to the content of the Intraoperative Record and any orders documented therein. Any exceptions are noted below. I attest to the content of the Intraoperative Record and any orders documented therein. Any exceptions are noted below.
--- NOTE | 2022-02-06 09:35 | Communication Note ---
Date of Service: February 06, 2022 Pt in postop recovery from RCS/BTL with very large infant this morning. RN notified me just now that patient is beginning to c/o cough, and has desaturated briefly to as low as upper 80%s, though this seemed to improve as she's sitting up. She notes the patient recently tested negative for COVID pre-op but asks if re-test with PCR is possible. Yes, I will send respiratory panel swab. However also note tachycardia, which is not unexpected in her current situation but could represent a sign of PE. This patient has a strong family history of throm botic disease. Although she personally has no convincing history of coagulopathy (a protein S workup done during was suggestive of deficiency but also not valid due to being done during ), she is recommended for prophylactic postoperative lovenox by heme-onc. She is obese and has plenty of risk factors for PE even without a known coagulopathy. I do not want to move her to CT in the immediate postop recovery if avoidable, so will start with stat portable EKG and LE dopplers. Patient also has a personal h/o asthma for which a prn albuterol inhaler is listed in her home meds, and this was ordered for her to be given now to see if that provides some relief.
[2022-02-06] MEDS ORDERED: BENZOCAINE 20% AER SPR 82.5 GM CAN EXT PRN (09:39)
[2022-02-06] MEDS ORDERED: MAGNESIUM HYDROXIDE SUSP 30 ML UDC PO PRN (09:39)
[2022-02-06] MEDS ORDERED: SENNA 8.6 MG TAB PO PRN (09:39)
[2022-02-06] MEDS ORDERED: HYDROCORTISONE ACETATE 25 MG SUPP PR PRN (09:39)
[2022-02-06] MEDS ORDERED: LACTATED RINGER'S 1,000 ML IV SCH (09:39)
[2022-02-06] MEDS ORDERED: OXYTOCIN 30 UNITS in LACTATED RINGER'S 1,000 ML IV SCH (09:39)
[2022-02-06] MEDS ORDERED: DIPHTHERIA/TETANUS/PERTUSSIS 0.5 ML SYR/VIAL IM ONE (09:39)
--- NOTE | 2022-02-06 10:06 | Obstetrical Progress Note ---
Date of Service February 06, 2022 Assessment & Plan (1) Oxygen desaturation: Plan: Patient is high risk for DVT/PE and will have EKG, US doppler LE's stat. SCD's held until those are resulted. Can send for CT if suspicion remains after these steps, but hoping to avoid moving her off L&D during phase1 recovery. As her vitals have improved dramatically, PE is fortunately seeming a little less likely right now. Differential is broad and also checking for respiratory viruses, asthma exacerbation treatment offered with albuterol as she has this for home use, acute emotional response / panic after hearing about her child's health issue is also a possibility. Patient does have psychiatric disease and is at high risk for depression which she also had in the past, along with needing to resume meds for her baseline bipolar d/o, so psych consult already initiated. Will continue to monitor closely. Admission and Anticipated Discharge Date Admission Date: February 06, 2022 Subjective Patient seen in LD room during her recovery from , due to RN concerns regarding cough, desaturation, and SOB. On my arrival patient is sitting semi-patel in bed, talking rapidly and constantly on a cell phone, with pulse in the upper 90s and O2 sat of 99% with FM02 in place. She is not c/o SOB at this time and is not seen to cough during my several minutes in her room. I am told that a PCR respiratory viral swab was collected and sent just prior to my arrival. The patient also was just notified by the equalizer operator that her i nfant will be transferred out of [facility] and that she will be unable to accompany him due to her own recovery and medical care. 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 There is some question of whether her initial desat / cough / tachycardia was due to a panic attack precipitated by this news being given to her. I observe: She has SCD's on her legs but not activated; I removed those with RN help, discussed that these should be replaced and reactivated after US *if* DVT has been ruled out. Patient is still under spinal effects, so although I dorsiflexed her feet and feel no calf "knots" and see no swelling or erythema, she is unable to identify any point-tenderness even if a clot were present. Her phone conversation is important to her given the recent news and she's not able to engage with me verbally, but seeing she is able to talk this much without desatting is reassuring. Physical Exam Physical Exam: Comfortable, semi-patel, FM02 in place Vitals reviewed, currently P98 Sat 99% BP 134/63 Eyes: Tearful/bloodshot eyes. Respiratory: Patient talking so much that resp rate is hard to assess. Cardiovascular: Mildly tachycardic to high-normal rate. SCD's removed, trace equal bilateral LE edema at most (pt obese, difficult to assess) Results & Data ([facility]) Vital Signs (Past 12 Hours) Vital Signs Temp Pulse Resp BP Pulse Ox 02/06/22 09:48 102 H 99 02/06/22 09:44 96 H 141/62 H 02/06/22 09:43 99 H 99 02/06/22 09:38 100 H 98 02/06/22 09:34 103 H 154/67 H 02/06/22 09:33 107 H 99 02/06/22 09:28 102 H 98 02/06/22 09:27 108 H 136/63 02/06/22 09:23 114 H 113/59 L 94 02/06/22 09:22 112 H 91 02/06/22 09:18 110 H 88 L 02/06/22 09:16 96 H 94 02/06/22 09:13 111 H 96 02/06/22 09:12 108 H 107/49 L 02/06/22 09:08 103 H 95 02/06/22 09:06 96 H 94 02/06/22 09:03 101 H 94 02/06/22 09:02 96 H 113/53 L 02/06/22 06:32 98.2 F 18 02/06/22 06:25 107 H 134/72 PG Care Time/CCT Total # of Minutes Spent Total Time Spent with Patient: Total time spent is greater than 50% in coordination of care (as documented) at patient's floor/unit and/or counseling patient: Coding Level of Care Code None Diagnoses Oxygen desaturation R09.02
[2022-02-06 10:27] LABS: Influenza A virus by PCR Negative (Neg); Influenza B virus by PCR Negative (Neg); RSV by PCR Negative (Neg); SARS CoV2 RNA(COVID-19) InHosp NEGATIVE (Negative)
[2022-02-06] MEDS ORDERED: ALBUTEROL HFA 8 GM INHALER INH ONE (10:45)
[2022-02-06] MEDS: KETOROLAC 30 MG/ML VIAL IV PRN ×2 (10:47→21:26)
[2022-02-06] MEDS ORDERED: ALBUTEROL HFA 8 GM INHALER INH PRN (11:05)
--- NOTE | 2022-02-06 11:09 | Ultrasound Report ---
BILATERAL LOWER EXTREMITY VENOUS DOPPLER HISTORY: Shortness of breath. Recent . Assess for DVT. COMPARISON STUDY: None. FINDINGS: There is normal compressibility, flow, and augmentation within the bilateral lower extremit y deep venous systems. IMPRESSION: No DVT within the right or left lower extremity. ACT 112: Negative or not required by law. Electronically signed by: Raul Vela M.D. 02/06/2022 11:08 AM
[2022-02-06] MEDS ORDERED: OPTIRAY 320 125ml IV ONE (13:12)
--- NOTE | 2022-02-06 13:41 | CT Scan Report ---
CT ANGIOGRAM OF THE CHEST CLINICAL HISTORY: Atypical chest pain. Vomiting and dyspnea. COMPARISON STUDY: Chest CT dated 12/29/2021. TECHNIQUE: Following the IV administration of 120 cc of Optiray 320, CT angiogram of the chest was pe rformed from the upper abdomen to the thoracic inlet utilizing the pulmonary embolus protocol. Images are reviewed in the axial, sagittal, and coronal planes. 3-D MIPS images are created and assessed. I V contrast was administered without complication. A dose lowering technique was utilized adhering to the principles of ALARA. The examination is significantly degraded by motion artifact. CT DOSE: 687.62 mGy.cm FINDINGS: Thyroid: Mildly enlarged and heterogeneous. Thoracic aorta: The thoracic aorta is normal in caliber and demonstrates standard 3-vessel arch anato my. No dissection is seen. Pulmonary vasculature: The pulmonary trunk is dilated, measuring 3.4 cm in diameter. This suggests pu lmonary artery hypertension. There are no filling defects identified in main, lobar, or proximal segm ental pulmonary branches to suggest pulmonary embolus. Evaluation of the segmental and subsegmental p ulmonary vessels is significantly degraded by motion artifact. Heart: The heart is enlarged noting a small pericardial effusion. Lungs and pleural spaces: Evaluation of the lung parenchyma is compromised by motion artifact. No air space consolidation typical for pneumonia or pleural effusion is identified. Significant dependent at electasis is noted at the lung bases. The trachea and central airways appear clear. Mediastinum: There is no mediastinal lymphadenopathy. Montse: Clear. Axillae: Shotty axillary lymph nodes are similar to previous. Upper abdomen: There are foci of intraperitoneal free air in the upper abdomen. There is hepatomegaly . The spleen is mildly enlarged measuring 13.7 cm in length. There is a small hiatal hernia. Skeletal structures: No lytic or blastic bony lesions are seen. IMPRESSION: 1. Motion compromised examination. 2. Intraperitoneal free air is seen in the upper abdomen. This is nonspecific and may be related to r ecent surgery. Perforated viscus would be impossible to exclude and clinical correlation will be requ ired. 3. There is no evidence of central pulmonary embolus in the main, lobar, or proximal segmental pulmon berny arteries. Evaluation of the segmental and subsegmental branches is significantly degraded by balta on artifact. 4. Dependent atelectasis with no airspace consolidation typical for pneumonia or pleural effusion. 5. Cardiomegaly and small pericardial effusion with evidence of pulmonary artery hypertension. 6. Hepatosplenomegaly. ACT 112: Negative or not required by law. Electronically signed by: John Castillo M.D. 02/06/2022 1:39 PM
--- NOTE | 2022-02-06 13:42 | Electrocardiogram Report ---
Test Reason : Blood Pressure : / mmHG Vent. Rate : 078 BPM Atrial Rate : 078 BPM P-R Int : 154 ms QRS Dur : 078 ms QT Int : 372 ms P-R-T Axes : 080 062 073 degrees QTc Int : 424 ms Sinus rhythm with marked sinus arrhythmia Otherwise normal ECG When compared with ECG of 29-DEC-2021 20:30, Vent. rate has decreased BY 49 BPM Confirmed by Hector Stanley ([id number]) on 02/06/2022 1:42:23 PM Referred By: Mary Whitney Confirmed By:Hector Stanley
--- NOTE | 2022-02-06 14:14 | Communication Note ---
Date of Service: February 06, 2022 attempted to initiate consult but liaison requested by staff to check back later this evening due to complications for mom and baby.
--- NOTE | 2022-02-06 14:37 | Communication Note ---
Date of Service: February 06, 2022 Continued following of this patient through the morning - her infant has been transported by air to [facility], and the patient remains in room 422 with her sister at the bedside. Monroe is unable to remove facemask O2 without feeling dizzy, which she says has been the case since she came out of her section. She does NOT feel dizzy when she has the oxygen mask on. She desaturates to the low-90s when she removes the mask to speak, drink, have an oral temp taken, etc. She is able to lay on her side and nap, but still needs to have the oxygen mask on or else she will desaturate. It does not look like a sleep apnea episode is occurring at these times. Her studies this morning have shown no DVT, no PE, and possible arrythmia on EKG (present at some times during monitoring and not others). On her CT the findings *did* include cardiomegaly, pericardial effusion, and enlarged pulmonary artery suggestive of pulmonary hypertension. While the patient had at least some degree of cardiomegaly on a CT done in December at our ER, not all of these findings were present, suggesting at least some degree of acute worsening. She is also at risk for peripartum cardiomyopathy (, Diabetic, obese), and that condition could explain her difficulty maintaining oxygen saturation. Will get Echocardiogram and cardiology consult. Patient notified of the above.
--- NOTE | 2022-02-06 14:53 | Anesthesiology Progress Note ---
Date of Service February 06, 2022 Anesthesia Post Procedure Vital Signs Vital Signs: Temp Pulse Resp BP Pulse Ox 02/06/22 14:50 95 H 97 02/06/22 14:45 106 H 98 02/06/22 14:40 100 H 99 02/06/22 14:35 100 H 98 02/06/22 14:30 102 H 93 02/06/22 14:25 117 H 96 02/06/22 14:23 102 H 115/56 L 94 02/06/22 14:20 36.5 C 101 H 20 116/92 98 02/06/22 14:17 95 H 94 02/06/22 14:14 106 H 97 02/06/22 14:09 114 H 98 02/06/22 14:08 100 H 92 02/06/22 14:04 108 H 96 02/06/22 14:03 102 H 92 02/06/22 13:58 108 H 95 02/06/22 13:57 116 H 93 02/06/22 13:53 105 H 123/58 L 97 02/06/22 13:51 109 H 94 02/06/22 13:48 103 H 97 02/06/22 13:46 103 H 94 02/06/22 13:43 115 H 93 02/06/22 13:40 93 H 93 02/06/22 13:37 109 H 96 02/06/22 13:34 112 H 94 02/06/22 13:32 117 H 94 02/06/22 13:28 95 H 94 02/06/22 13:27 99 H 93 02/06/22 13:23 89 94 02/06/22 13:22 103 H 135/63 95 02/06/22 12:48 113 H 83 L 02/06/22 12:47 105 H 118/55 L 02/06/22 12:43 111 H 100 02/06/22 12:40 101 H 87 L 02/06/22 12:38 95 H 99 02/06/22 12:33 99 H 93 02/06/22 12:30 36.5 C 88 20 96 02/06/22 12:28 82 96 02/06/22 12:23 79 95 02/06/22 12:19 113 H 129/57 L 02/06/22 12:18 111 H 98 02/06/22 12:13 104 H 93 02/06/22 12:08 109 H 99 02/06/22 12:07 116 H 93 02/06/22 12:03 120 H 97 02/06/22 12:02 113 H 94 02/06/22 12:00 17 02/06/22 11:58 95 H 98 02/06/22 11:56 94 H 93 02/06/22 11:53 106 H 99 02/06/22 11:48 81 98 02/06/22 11:43 87 142/68 H 96 02/06/22 11:38 93 H 99 02/06/22 11:34 87 92 02/06/22 11:33 93 H 22 140/67 100 02/06/22 11:28 101 H 99 02/06/22 11:23 100 H 131/60 94 02/06/22 11:18 99 H 98 02/06/22 11:16 104 H 94 02/06/22 11:14 101 H 127/62 02/06/22 11:13 101 H 97 02/06/22 11:08 101 H 97 02/06/22 11:04 108 H 127/69 92 02/06/22 11:03 36.4 C L 107 H 20 96 02/06/22 10:58 104 H 98 02/06/22 10:54 113 H 147/73 H 02/06/22 10:53 113 H 94 02/06/22 10:48 96 H 97 02/06/22 10:44 88 112/53 L 02/06/22 10:43 106 H 98 02/06/22 10:38 84 98 02/06/22 10:34 115 H 139/95 02/06/22 10:33 96 H 22 97 02/06/22 10:28 93 H 98 02/06/22 10:24 112 H 130/69 02/06/22 10:23 116 H 95 02/06/22 10:20 100 H 86 L 02/06/22 10:18 103 H 95 02/06/22 10:13 95 H 128/66 100 02/06/22 10:08 95 H 99 02/06/22 10:03 84 20 139/95 98 02/06/22 09:58 99 H 100 02/06/22 09:53 98 H 18 134/63 99 02/06/22 09:48 102 H 99 02/06/22 09:44 96 H 141/62 H 02/06/22 09:43 99 H 20 99 02/06/22 09:38 100 H 98 02/06/22 09:34 103 H 154/67 H 02/06/22 09:33 107 H 18 99 02/06/22 09:28 102 H 98 02/06/22 09:27 108 H 136/63 02/06/22 09:23 114 H 27 H 113/59 L 94 02/06/22 09:22 112 H 91 02/06/22 09:18 110 H 88 L 02/06/22 09:16 96 H 94 02/06/22 09:13 111 H 20 96 02/06/22 09:12 108 H 107/49 L 02/06/22 09:08 103 H 95 02/06/22 09:06 96 H 94 02/06/22 09:03 36.3 C L 101 H 20 94 02/06/22 09:02 96 H 113/53 L 02/06/22 06:32 36.8 C 18 02/06/22 06:25 107 H 134/72 Pain Intensity Bilateral Anterior Abdomen: Pain Intensity: 0 Transfer of Care Handoff Completed per policy Notes Mental Status: alert / awake / arousable Patient Amnestic to Procedure: Yes Nausea / Vomiting: adequately controlled Pain: adequately controlled Airway Patency, RR, SpO2: stable & adequate BP & HR: stable & adequate Hydration State: stable & adequate Neuraxial Anesthesia: was administered and sensory block is resolving Anesthetic Complications: no major complications apparent
[2022-02-06] MEDS: SIMETHICONE 80 MG CHEW PO SCH ×3 (14:58→21:26)
--- NOTE | 2022-02-06 17:15 | XCELERA ---
[id number] [email or web address]\[id number]
--- NOTE | 2022-02-06 19:51 | Cardiology Consultation ---
Date of Consultation February 06, 2022 Assessment & Plan (1) Acute respiratory distress: (2) Hypoxia: (3) Chest pain: ASSESSMENT/PLAN: 1. Acute respiratory distress: No acute distress currently when seen at approximately 6:00 p.m.. Etiology uncertain. She does not appear hypervolemic. LV systolic function normal on echo. Do not suspect cardiomyopathy at this present time. CTA was compromised by motion and therefore cannot exclude some form of embolic event in smaller pulmonary arteries. Fortunately, she has significantly improved with very little intervention other than supplemental oxygen and albuterol inhaler, both of which improved her breathing significantly per her report. It is possible that her underlying asthma played a role. No obvious cardiac etiology at this time. 2. Hypoxia: During our meeting, supplemental oxygen was reduced from 6 L gradually down to 3 L. Her oxygen saturation remained 98% and she continued to be free from shortness of breath. Would recommend continued weaning of her supplemental oxygen as able. 3. Chest pain: Etiology uncertain. Will track high sensitivity troponin level and it would not be surprising if it is elevated given today's event. Do not suspect acute coronary syndrome. 4. Disposition: If unable to wean her from supplemental oxygen, could consider pulmonary evaluation and consideration for anticoagulation therapy given motion degraded CTA imaging. Patient care was communicated with Dr. Whitney. Thank you for allowing me to participate in the care of your patient. Please call for any other questions or concerns. Sincerely, Joshua Stanley M.D. 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 Ragland is a very pleasant 21-year-old female with a history significant for asthma, PTSD, and depression. She was admitted on 02/06/2022 for of her fourth child. She had gestational diabetes. She underwent this morning and recalls feeling very tired throughout the procedure. When her baby was placed on her chest, she recalls feeling chest pressure and that her body felt numb throughout. She wondered if she was having acid reflux, which she has had. She then became more acutely short of breath with coughing spells. Hypoxia was reported with oxygen saturation in the 80s. She noted that her breathing was better when sitting upright. She felt better with oxygen supplementation and inhaler. Unfortunately, her child was quite ill and was life flighted to a facility with NICU capabilities. 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 She recalls that her sister, Luz Marina, also has hypertrophic cardiomyopathy and is currently on the heart transplant list. She wonders if her mother had a similar issue as she at the age of 35 from thrombosis. She recalls that her sister flat lined and needed resuscitation due to her heart disease and thrombosis. She herself has not been diagnosed with any cardiac disorder. Her breathing has significantly improved and she has been weaned down to supplemental oxygen via nasal cannula. She states that her feet are swollen from baseline. She also feels lightheaded or dizzy when she stands upright. Earlier, when she was struggling to breathe, she also had nausea and vomiting although this has subsided and she was able to tolerate a meal this evening. She has not formally been diagnosed with diabetes, only gestational diabetes but admits that she has not necessarily been checked for such as she does not follow with her PCP regularly. She denies syncope, palpitations, melena, hematochezia, or hematuria. Review of systems: As above. Review of systems otherwise negative/unremarkable. Family history: Older sister, Luz Marina, diagnosed with hypertrophic cardiomyopathy on cardiac transplant list. She also has history of thrombus formation and CHF. Her mother at age 35 due to thrombotic event but she believes she also had hypertrophic cardiomyopathy. She has a total of 10 siblings and no other cardiac issues are known. Social history: Has smoked cigarettes since the age of 11 although she did stop during her . Occasional alcohol. No drugs. lives at home with her 3 children, the oldest 5 years of age. She is not . She was unaccompanied in her hospital room. Allergies Allergy/AdvReac Type Severity Reaction Status Date / Time house dust Allergy Mild ITCHY Verified 02/06/22 08:22 EYES, RUNNY NOSE cat dander Allergy Unknown ITCHY EYES Verified 02/06/22 06:31 taylor Allergy Unknown LIP/THROAT Verified 02/06/22 06:31 SWELLING lamotrigine Allergy Unknown rash Verified 02/06/22 06:31 mold Allergy Unknown ITCHY Verified 02/06/22 06:31 EYES, RUNNY NOSE guanfacine AdvReac Unknown BECOME OCD Verified 02/06/22 06:31 Home Medications Medication Instructions Recorded Confirmed Type albuterol sulfate 90 mcg/actuation 1 - 2 puff INHALATION DIRECTED 05/21/19 02/05/22 History aerosol inhaler PRN #1 gm [id number] 1 mg 1 tab PO DAILY 11/28/21 02/06/22 History tablet Patient History Medical History Acid reflux ADHD Asthma CONTROLLED Back problem Bipolar disorder Depression Gestational diabetes Heartburn during History of COVID-19 - MUTLIPLE TIMES IN HX PER PT- NO NOTED POSITIVE COVID TESTS ON FILE IN [facility] AND [facility] IN THE PAST 90 DAYS - PT HAS MILD COUGH AND CONGESTION, RUNNY NOSE CURRENTLY- PT REPORTS BELIEVES SYMPTOMS TO BE UNRELATED TO HX COVID History of recent hospitalization ADMITTED TO [facility] 01/29/22 SECONDARY TO DECREASED MOVEMENT- FELT SECONDARY TO DEHYDRATION History of seizures as a child AGE 8, HX MEDS, LAST SEIZURE 8 YR OLD History of treatment by mental health professional PT REPORTS MULTIPLE MENTAL HEALTH HX DX ... 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 - SEEN BY [facility] CARDIO 03/2021- RECOMMENDED ECHO AND CV GENETIC TESTING (PRESUMED PT NEVER HAD DONE- NO RESULTS IN [facility]). 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 Past medical history not known due to adoption PT ADOPTED, FAMILY MED HX KNOWLEDGE LIMITED Post-traumatic stress disorder SOB (shortness of breath) on exertion Surgical History History of foot surgery RIGHT S/P section HX X3 [place] teeth removed Family History Mother Deep vein thrombosis Clotting disorder Pulmonary embolism Sister Deep vein thrombosis Heart disease Hypertension Grandmother Breast cancer Denies family history of Ovarian cancer Prostate cancer Colorectal cancer Social History Smoking Status: Former smoker Tobacco Type: Cigarettes packs per day: 0.5; Smoking End Date: BEFORE I WAS - QUIT SOON I FOUND OUT; Second Hand Exposure: No; Hx Alcohol Use: No Hx Substance Use: No Preferred Language: Brazilian Communication Ability: Effective Fittings Finisher Required: No Beliefs That Will Affect Care: None marital status: Single marital status details: Sumit Ortiz- [phone] Current Living Situation: Other Current Living Situation Comment: Lives with 3 daughters current occupational status: unemployed current occupation: [employer] position Other Information That Helps Us Care for You: No other: adopted Feels Safe at Home: Yes Safety Concerns: Feels Safe At This Time Assistive Devices: None Assistive Devices Comment: SUPPOSED TO WEAR GLASSES..HAVEN'T GOT NEW PRESCRIPTION YET Physical Exam Physical Exam: Gen.: No acute distress. Alert and oriented. HEENT: Anicteric sclera. Neck: Thick neck but no appreciable JVD. No bruits. Normal carotid upstrokes bilaterally. Cardiac: PMI was nondisplaced. No ventricular heave. Regular and mildly tachycardic. Normal S1-S2. No murmurs, rubs, or gallops. Pulmonary: Decreased breath sounds throughout, but otherwise clear to auscultation bilaterally without wheezes, rales, or rhonchi. Abdomen: Soft, nondistended. No bruits noted. Extremities: 2+ radial pulses bilaterally. 2+ posterior tibialis pulses bilaterally. No pitting edema or cyanosis. Psychiatric: Affect appears appropriate. Results & Data ([facility]) Vital Signs (Past 12 Hours) Vital Signs Temp Pulse Resp BP Pulse Ox 02/06/22 19:26 109 H 97 02/06/22 19:21 111 H 98 02/06/22 19:16 104 H 98 02/06/22 19:11 99 H 98 02/06/22 19:06 97 H 98 02/06/22 19:01 101 H 97 02/06/22 18:58 97 02/06/22 18:56 110 H 97 02/06/22 18:51 111 H 97 02/06/22 18:46 119 H 97 02/06/22 18:41 98 H 97 02/06/22 18:36 96 H 96 02/06/22 18:31 105 H 97 02/06/22 18:30 18 97 02/06/22 18:26 114 H 98 02/06/22 18:21 104 H 98 02/06/22 18:16 117 H 98 02/06/22 18:11 118 H 99 02/06/22 18:06 116 H 98 02/06/22 18:01 117 H 98 02/06/22 17:56 110 H 99 02/06/22 17:53 121 H 131/63 02/06/22 17:51 116 H 99 02/06/22 17:46 125 H 99 02/06/22 17:41 120 H 98 02/06/22 17:36 118 H 98 02/06/22 17:31 101 H 98 02/06/22 17:30 20 98 02/06/22 17:26 119 H 98 02/06/22 17:23 116 H 135/62 02/06/22 17:21 118 H 98 02/06/22 17:16 115 H 98 02/06/22 17:11 117 H 98 02/06/22 17:06 118 H 98 02/06/22 17:01 123 H 99 02/06/22 16:56 119 H 98 02/06/22 16:54 127 H 146/65 H 02/06/22 16:53 139 H 170/84 H 02/06/22 16:51 138 H 97 02/06/22 16:46 127 H 98 02/06/22 16:41 119 H 97 02/06/22 16:36 108 H 98 02/06/22 16:31 101 H 99 02/06/22 16:30 20 98 02/06/22 16:26 105 H 99 02/06/22 16:23 104 H 120/63 02/06/22 16:21 114 H 99 02/06/22 16:16 113 H 99 02/06/22 16:11 112 H 99 02/06/22 16:06 110 H 97 02/06/22 16:01 114 H 98 02/06/22 16:00 117 H 92 02/06/22 15:56 117 H 97 02/06/22 15:53 100 H 121/76 02/06/22 15:51 103 H 98 02/06/22 15:48 109 H 94 02/06/22 15:46 107 H 98 02/06/22 15:41 106 H 98 02/06/22 15:36 100 H 95 02/06/22 15:35 96 H 94 02/06/22 15:31 107 H 98 02/06/22 15:30 36.8 C 109 H 20 97 02/06/22 15:25 111 H 94 02/06/22 15:24 118 H 72 L 02/06/22 15:23 93 H 129/57 L 02/06/22 15:20 106 H 97 02/06/22 15:15 100 H 96 02/06/22 15:14 101 H 94 02/06/22 15:10 105 H 98 02/06/22 15:05 88 98 02/06/22 15:00 87 96 02/06/22 14:55 100 H 93 02/06/22 14:53 102 H 140/66 02/06/22 14:50 95 H 97 02/06/22 14:45 106 H 98 02/06/22 14:40 100 H 99 02/06/22 14:35 100 H 98 02/06/22 14:30 102 H 93 02/06/22 14:25 117 H 96 02/06/22 14:23 102 H 115/56 L 94 02/06/22 14:20 36.5 C 101 H 20 116/92 98 02/06/22 14:17 95 H 94 02/06/22 14:14 106 H 97 02/06/22 14:09 114 H 98 02/06/22 14:08 100 H 92 02/06/22 14:04 108 H 96 02/06/22 14:03 102 H 92 02/06/22 13:58 108 H 95 02/06/22 13:57 116 H 93 02/06/22 13:53 105 H 123/58 L 97 02/06/22 13:51 109 H 94 02/06/22 13:48 103 H 97 02/06/22 13:46 103 H 94 02/06/22 13:43 115 H 93 02/06/22 13:40 93 H 93 02/06/22 13:37 109 H 96 02/06/22 13:34 112 H 94 02/06/22 13:32 117 H 94 02/06/22 13:28 95 H 94 02/06/22 13:27 99 H 93 02/06/22 13:23 89 94 02/06/22 13:22 103 H 135/63 95 02/06/22 12:48 113 H 83 L 02/06/22 12:47 105 H 118/55 L 02/06/22 12:43 111 H 100 02/06/22 12:40 101 H 87 L 02/06/22 12:38 95 H 99 02/06/22 12:33 99 H 93 02/06/22 12:30 36.5 C 88 20 96 02/06/22 12:28 82 96 02/06/22 12:23 79 95 02/06/22 12:19 113 H 129/57 L 02/06/22 12:18 111 H 98 02/06/22 12:13 104 H 93 02/06/22 12:08 109 H 99 02/06/22 12:07 116 H 93 02/06/22 12:03 120 H 97 02/06/22 12:02 113 H 94 02/06/22 12:00 17 02/06/22 11:58 95 H 98 02/06/22 11:56 94 H 93 02/06/22 11:53 106 H 99 02/06/22 11:48 81 98 02/06/22 11:43 87 142/68 H 96 02/06/22 11:38 93 H 99 02/06/22 11:34 87 92 02/06/22 11:33 93 H 22 140/67 100 02/06/22 11:28 101 H 99 02/06/22 11:23 100 H 131/60 94 02/06/22 11:18 99 H 98 02/06/22 11:16 104 H 94 02/06/22 11:14 101 H 127/62 02/06/22 11:13 101 H 97 02/06/22 11:08 101 H 97 02/06/22 11:04 108 H 127/69 92 02/06/22 11:03 36.4 C L 107 H 20 96 02/06/22 10:58 104 H 98 02/06/22 10:54 113 H 147/73 H 02/06/22 10:53 113 H 94 02/06/22 10:48 96 H 97 02/06/22 10:44 88 112/53 L 02/06/22 10:43 106 H 98 02/06/22 10:38 84 98 02/06/22 10:34 115 H 139/95 02/06/22 10:33 96 H 22 97 02/06/22 10:28 93 H 98 02/06/22 10:24 112 H 130/69 02/06/22 10:23 116 H 95 02/06/22 10:20 100 H 86 L 02/06/22 10:18 103 H 95 02/06/22 10:13 95 H 128/66 100 02/06/22 10:08 95 H 99 02/06/22 10:03 84 20 139/95 98 02/06/22 09:58 99 H 100 02/06/22 09:53 98 H 18 134/63 99 02/06/22 09:48 102 H 99 02/06/22 09:44 96 H 141/62 H 02/06/22 09:43 99 H 20 99 02/06/22 09:38 100 H 98 02/06/22 09:34 103 H 154/67 H 02/06/22 09:33 107 H 18 99 02/06/22 09:28 102 H 98 02/06/22 09:27 108 H 136/63 02/06/22 09:23 114 H 27 H 113/59 L 94 02/06/22 09:22 112 H 91 02/06/22 09:18 110 H 88 L 02/06/22 09:16 96 H 94 02/06/22 09:13 111 H 20 96 02/06/22 09:12 108 H 107/49 L 02/06/22 09:08 103 H 95 02/06/22 09:06 96 H 94 02/06/22 09:03 36.3 C L 101 H 20 94 02/06/22 09:02 96 H 113/53 L Laboratory Results Laboratory Results - last 24 hr 02/06/22 02/06/22 02/06/22 06:27 06:27 06:30 WBC 5.19 RBC 4.26 Hgb 10.8 L Hct 31.6 L MCV 74.2 L MCH 25.4 MCHC 34.2 RDW Std Deviation 42.9 RDW Coeff of Nan 15.8 H Plt Count 270 MPV 9.5 Immature Gran % (Auto) 0.0 Neut % (Auto) 58.9 Lymph % (Auto) 27.4 [place] % (Auto) 11.8 Eos % (Auto) 1.7 Baso % (Auto) 0.2 Neut # (Auto) 3.06 Lymph # (Auto) 1.42 [place] # (Auto) 0.61 H Eos # (Auto) 0.09 Baso # (Auto) 0.01 Immature Gran # (Auto) 0.00 POC Glucose 235 H SARS-CoV-2 (PCR) Influenza Type A (PCR) Influenza Type B (PCR) RSV (RT-PCR) Blood Type O Positive Antibody Screen NEGATIVE Crossmatch See Detail 02/06/22 02/06/22 06:32 Unknown WBC RBC Hgb Hct MCV MCH MCHC RDW Std Deviation RDW Coeff of Nna Plt Count MPV Immature Gran % (Auto) Neut % (Auto) Lymph % (Auto) [place] % (Auto) Eos % (Auto) Baso % (Auto) Neut # (Auto) Lymph # (Auto) [place] # (Auto) Eos # (Auto) Baso # (Auto) Immature Gran # (Auto) POC Glucose 99 SARS-CoV-2 (PCR) NEGATIVE Influenza Type A (PCR) Negative Influenza Type B (PCR) Negative RSV (RT-PCR) Negative Blood Type Antibody Screen Crossmatch Diagnostic Findings ECGs personally reviewed: ECG [id number]: Sinus rhythm 98 beats per minute. ECG 02/06/2022 10:30 a.m.: Sinus rhythm with sinus arrhythmia 78 beats per minute. Echo 02/06/2022: Normal LV size, wall motion, systolic function. EF 55-60%. Mild LVH. No significant diastolic dysfunction. Mild left atrial dilation. No significant valvular abnormalities. CTA chest 02/06/2022: Per Radiology, motion compromise examination. No evidence of central pulmonary embolus in the main, lobar, or proximal segmental pulmonary arteries. Evaluation of segmental and subsegmental branches significantly degraded by motion artifact. No airspace consolidation typical for pneumonia or pleural effusion. Cardiomegaly and small pericardial effusion. Suggestion of pulmonary artery hypertension. Hepatic splenomegaly. Venous Doppler 02/06/2022: No DVT bilateral lower extremities. Medications Administered Current Inpatient Medications Albuterol (Albuterol Hfa 8 Gm Inhaler) 2 puffs INH Q4 PRN PRN Reason: Wheezing Stop: 03/08/22 11:59 Last Admin: 02/06/22 11:34 Dose: 2 puffs Documented by: Benzocaine (Benzocaine 20% Aer Spr 82.5 Gm Can) 1 appln EXT UD PRN PRN Reason: use on skin as needed Stop: 03/08/22 09:38 Diphenhydramine HCl (Diphenhydramine 50 Mg/Ml Vial) 12.5 mg IV Q6H PRN PRN Reason: pruritis Stop: 02/07/22 01:44 Diphenhydramine HCl (Diphenhydramine Capsule 25 Mg Cap) 25 mg PO QID PRN PRN Reason: Itching Stop: 03/09/22 01:43 Diphenhydramine HCl (Diphenhydramine 50 Mg/Ml Vial) 25 mg IV QID PRN PRN Reason: Itching Stop: 03/09/22 01:43 Docusate Sodium (Docusate Sodium 100 Mg Cap) 100 mg PO DAILY@08, [facility] Stop: 03/08/22 20:59 Enoxaparin Sodium (Enoxaparin Inj 40 Mg/0.4 Ml Syr) 40 mg SQ QAM [facility] Stop: 03/09/22 08:59 Ephedrine Sulfate (Ephedrine Sulfate 50 Mg/Ml Amp) 10 mg IV Q5M PRN PRN Reason: Hypotension Stop: 02/07/22 01:44 Ferrous Sulfate (Ferrous Sulfate 325 Mg Tab) 325 mg PO DAILY@08 [facility] Stop: 03/09/22 07:59 Hydrocortisone (Hydrocortisone Acetate 25 Mg Supp) 25 mg NM BID PRN PRN Reason: Hemorrhoids Stop: 03/08/22 09:38 Sodium Chloride (Nss 1000ml) 1,000 mls @ 15 mls/hr IV .Q24H [facility] Stop: 02/07/22 01:44 Naloxone HCl 1 mg/ Sodium (Chloride) 1,002.5 mls @ 50 mls/hr IV .Q20H3M PRN PRN Reason: itching or nausea Stop: 02/07/22 01:56 Promethazine HCl 12.5 mg/ (Sodium Chloride) 50.5 mls @ 204 mls/hr IV Q6H PRN PRN Reason: Nausea And Vomiting Stop: 02/07/22 01:56 Last Admin: 02/06/22 11:20 Dose: 204 mls/hr Documented by: Naloxone HCl 1 mg/ Sodium (Chloride) 1,002.5 mls @ 50 mls/hr IV .Q20H3M PRN PRN Reason: itching or nausea Stop: 02/07/22 01:44 Lactated Ringer's (Lr) 500 mls @ 999 mls/hr IV .Q31M PRN PRN Reason: Hypotension Stop: 02/07/22 01:44 Naloxone HCl 0.08 mg/ Syringe 2 mls @ 1 mls/min IV Q30M PRN; Protocol PRN Reason: Urinary Retention Stop: 02/07/22 01:44 Lactated Ringer's (Lr) 1,000 mls @ 125 mls/hr IV .Q8H [facility] Stop: 03/08/22 09:38 Promethazine HCl 25 mg/ Sodium (Chloride) 51 mls @ 204 mls/hr IV Q4H PRN PRN Reason: Nausea And Vomiting Stop: 03/09/22 01:43 Ibuprofen (Ibuprofen 600 Mg Tab) 600 mg PO Q4H PRN PRN Reason: Pain Stop: 03/09/22 01:43 Ketorolac Tromethamine (Ketorolac 30 Mg/Ml Vial) 30 mg IV Q6H PRN PRN Reason: Breakthrough Surgical Pain Stop: 02/07/22 01:56 Last Admin: 02/06/22 10:47 Dose: 30 mg Documented by: Ketorolac Tromethamine (Ketorolac 30 Mg/Ml Vial) 30 mg IV Q6H PRN PRN Reason: Pain Stop: 02/12/22 01:43 Magnesium Hydroxide (Magnesium Hydroxide Susp 30 Ml Udc) 30 ml PO HS PRN PRN Reason: Constipation Stop: 03/08/22 09:38 Meperidine HCl (Meperidine Hcl 50 Mg/Ml Carp) 50 - 75 mg IV Q4H PRN PRN Reason: Pain Stop: 02/21/22 01:43 Miscellaneous (No Narcotics Or Sedatives) 1 ea N/A UD [facility] Stop: 02/07/22 01:44 Miscellaneous Information (Dc Intraspinal Morphine) 1 ea N/A UD [facility] Stop: 02/07/22 01:44 Morphine Sulfate (Morphine Sulfate 2 Mg/Ml Carp) 2 mg IV Q2H PRN PRN Reason: Breakthrough Surgical Pain Stop: 02/07/22 01:56 Nalbuphine HCl (Nalbuphine Hcl Inj 10 Mg/Ml Amp) 5 mg IV Q10M PRN PRN Reason: itching or nausea Stop: 02/07/22 01:44 Naloxone HCl (Naloxone Hcl 0.4 Mg/1 Ml Vial/Carp) 0.1 mg IV UD PRN PRN Reason: Respiratory Depression Stop: 02/07/22 01:44 Ondansetron HCl (Ondansetron Inj 2 Mg/Ml 2 Ml Vial) 4 mg IV Q6H PRN PRN Reason: Nausea And Vomiting Stop: 02/07/22 01:56 Last Admin: 02/06/22 09:23 Dose: 4 mg Documented by: Ondansetron HCl (Ondansetron Inj 2 Mg/Ml 2 Ml Vial) 4 mg IV Q4H PRN PRN Reason: Nausea And Vomiting Stop: 03/09/22 01:43 Oxycodone/Acetaminophen (Oxycodone/Acetaminophen 5mg/325mg Tab) 1 - 2 tab PO Q4H PRN PRN Reason: Pain Stop: 02/21/22 01:43 Prenat Multivit/[employer] Analyst/Iron/Folic Ac ( Vitamin 1 Tab) 1 tab PO DAILY@08 [facility] Stop: 03/09/22 07:59 Sennosides (Senna 8.6 Mg Tab) 17.2 mg PO HS PRN PRN Reason: Constipation Stop: 03/08/22 09:38 Simethicone (Simethicone 80 Mg Chew) 80 mg PO DAILY@08,13,17, [facility] Stop: 03/08/22 12:59 Last Admin: 02/06/22 18:50 Dose: 80 mg Documented by: PG Care Time/CCT Total # of Minutes Spent Total Time Spent with Patient: Total time spent is greater than 50% in coordination of care (as documented) at patient's floor/unit and/or counseling patient: Coding Level of Care Code 49197 Inpt Consult Level 4 Diagnoses Acute respiratory distress R06.03 Hypoxia R09.02 Chest pain R07.9
[2022-02-06] MEDS: DOCUSATE SODIUM 100 MG CAP PO SCH (21:26)
[2022-02-06] MEDS: NALBUPHINE HCL INJ 10 MG/ML AMP IV PRN (22:53)
[2022-02-07] MEDS: NALBUPHINE HCL INJ 10 MG/ML AMP IV PRN (00:04)
[2022-02-07] MEDS: oxyCODONE/ACETAMINOPHEN 5mg/325mg TAB PO PRN ×4 (01:41→17:18)
[2022-02-07] MEDS: IBUPROFEN 600 MG TAB PO PRN ×4 (01:43→17:18)
[2022-02-07] MEDS ORDERED: diphenhydrAMINE 50 MG/ML VIAL IV PRN (01:44)
[2022-02-07] MEDS ORDERED: diphenhydrAMINE Capsule 25 MG CAP PO PRN (01:44)
[2022-02-07] MEDS ORDERED: KETOROLAC 30 MG/ML VIAL IV PRN (01:44)
[2022-02-07] MEDS ORDERED: PROMETHAZINE HCL 25 MG in SODIUM CHLORIDE 0.9% 50 ML IV PRN (01:44)
[2022-02-07] MEDS ORDERED: MEPERIDINE HCL 50 MG/ML CARP IV PRN (01:44)
[2022-02-07] MEDS ORDERED: ONDANSETRON INJ 2 MG/ML 2 ML VIAL IV PRN (01:44)
[2022-02-07 07:02] LABS: Basophils # (auto) 0.02 K/uL (0-0.2); Basophils % (auto) 0.3 %; Eosinophils # (auto) 0.06 K/uL (0-0.5); Eosinophils % (auto) 0.8 %; Hematocrit (blood only) 28.2 % (37-47); Hemoglobin 9.6 g/dL (12.0-16.0); Immature Granulocytes # (auto) 0.01 K/uL (0.00-0.02); Immature Granulocytes % (auto) 0.1 %; Lymphocytes % (auto) 13.2 %; Mean Corpuscular Hemoglobin 25.4 pg (25-34); Mean Corpuscular Volume 74.6 fL (80-100); Mean Platelet Volume 9.5 fL (7.4-10.4); Monocytes # (auto) 0.73 K/uL (0.11-0.59); Monocytes % (auto) 9.6 %; Neutrophils # (auto) 5.75 K/uL (1.4-6.5); Platelet Count 223 K/uL (130-400); RDW Coefficient of Variation 15.6 % (11.5-14.5); RDW Standard Deviation 43.1 fL (36.4-46.3); Red Blood Count 3.78 M/uL (4.2-5.4); White Blood Count 7.57 K/uL (4.8-10.8)
--- NOTE | 2022-02-07 07:03 | Obstetrical Progress Note ---
Date of Service <Cristina Romo DO - Last Filed: 02/07/22 07:20> February 07, 2022 Assessment & Plan <Cristina Romo DO - Last Filed: 02/07/22 07:20> (1) Bipolar disorder, mixed: (2) Encounter for care and examination after delivery: (3) Asthma with acute exacerbation: (4) Gestational diabetes mellitus (GDM) affecting : 21 yo post op day1 from c/s H GDM uncontrolled, bipolar untreated, FH thrombotic disease, doing well. -Continue routine post care. -vital signs reviewed and WNL (Tmax 37.1) -Blood Type O+, GBS+, Rubella Immune -Encourage ambulation, monitor and control pain with Motrin, tylenol PRN, resume regular diet, monitor lochia -hemoglobin 10.8 Acute respiratory distress -patient desated to 80% on RA after delivery was on 6L O2 -resolved at this point, NC removed by patient satting well on room air -CTA negative for PE, EKG unremarkable -Echo EF 55-60% with mild concentric LVH, cardiology consult placed - no obvious cardiac etiology recommend wean off O2 -patient aware she may use her inhaler if she experiences breathing difficulties -added mucinex Hx. Bipolar, untreated -psych consult placed FH. Thrombotic Disease -on Lovenox 40mg SQ daily Day #:: 1 <Mary Whitney MD - Last Filed: 02/07/22 08:12> (1) Bipolar disorder, mixed: Psych consult appreciated. Patient not currently on medications but also not experiencing acute symptoms. High risk for depression, will require outpatient f/u. (2) Encounter for care and examination after delivery: Recovering well from a surgical standpoint, incision c/d/i this morning with surgical glue, ambulating in room without dizziness this morning, voiding normally, eating regular diet since mid-day yesterday at patient's own request. No flatus yet but also no distention or abdominal pain to suggest ileus. Continue ambulation and pain management today. (3) Asthma with acute exacerbation: Improved cough/desats after administration of albuterol inhaler yesterday, suggesting this played a role in her issues immediately post-delivery. May also have a component of obesity-related hypoventilation with her prolonged supine position during delivery, mild chronic cardiac enlargement/hypertrophy, and/or chronic borderline pulmonary hypertension. As of this morning she is off all supplemental oxygen with sats >95%. Continues to have inhaler available if needed. (4) Gestational diabetes mellitus (GDM) affecting : Will need f/u testing after 6 weeks to rule out T2DM without proper prior testing and treatment. Subjective <Cristina Romo DO - Last Filed: 02/07/22 07:20> Ambulation: ambulating normally Voiding: no voiding problems Passing Gas:: No Diet Tolerance:: regular diet Lochia:: Moderate Current Pain Level(1-10): 3 Review of Systems Positive cough, congestion, 1 episode dizziness room spinning when she stood up Denies fever, chills, sweats Denies shortness of breath, difficulty breathing, chest pain, palpitations, chest pressure. Denies breast pain. Denies dysuria. Denies headache or changes in vision. <Mary Whitney MD - Last Filed: 02/07/22 08:12> Review of Systems Denies fever, chills, sweats Denies shortness of breath, difficulty breathing, chest pain, palpitations, chest pressure. Denies breast pain. Denies dysuria. Denies headache or changes in vision. Physical Exam <Cristina Romo DO - Last Filed: 02/07/22 07:20> General: Alert, oriented. No acute distress. Cardiac: Regular rate and rhythm, no murmurs/rubs/gallops. Respiratory: Clear to auscultation bilaterally a/p, no wheezes/rales/rhonchi. No increased work of breathing. Symmetrical chest rise. No respiratory distress. Abdomen: Soft, nontender, nondistended. Bowel sounds present. Uterus: Uterine fundus firm, palpable 2 cm below umbilicus, tender to palpation. Surgical scar clean and healing well. Lower Extremities: No lower extremity edema or swelling. No deep calf pain. Bobby's negative bilaterally. Results & Data ([facility]) <Cristina Romo DO - Last Filed: 02/07/22 07:20> Vital Signs (Past 12 Hours) Vital Signs Temp Pulse Pulse Resp BP BP Pulse Ox 02/07/22 05:00 37.1 C 95 H 95 H 20 131/75 131/75 97 02/07/22 01:00 22 97 02/07/22 00:30 37.2 C 87 87 18 149/75 H 149/75 H 95 02/07/22 00:00 20 95 02/06/22 23:00 18 98 02/06/22 22:30 37.1 C 88 88 18 131/78 131/78 98 02/06/22 22:00 18 97 02/06/22 21:41 100 H 97 02/06/22 21:38 107 H 114/54 L 02/06/22 21:36 102 H 97 02/06/22 21:31 117 H 97 02/06/22 21:26 108 H 97 02/06/22 21:21 107 H 97 02/06/22 21:16 115 H 97 02/06/22 21:11 109 H 97 02/06/22 21:06 99 H 98 02/06/22 21:01 104 H 98 02/06/22 21:00 18 97 02/06/22 20:56 96 H 98 02/06/22 20:51 93 H 98 02/06/22 20:46 96 H 98 02/06/22 20:41 98 H 98 02/06/22 20:36 90 97 02/06/22 20:31 101 H 97 02/06/22 20:26 98 H 97 02/06/22 20:21 94 H 97 02/06/22 20:16 105 H 98 02/06/22 20:15 93 H 112/55 L 02/06/22 20:11 94 H 97 02/06/22 20:06 107 H 98 02/06/22 20:01 116 H 97 02/06/22 19:56 91 H 98 02/06/22 19:51 36.9 C 108 H 18 98 02/06/22 19:49 106 H 151/71 H 02/06/22 19:46 104 H 98 02/06/22 19:41 107 H 98 02/06/22 19:36 112 H 98 02/06/22 19:31 104 H 98 02/06/22 19:26 109 H 97 02/06/22 19:21 111 H 98 02/06/22 19:16 104 H 98 02/06/22 19:11 99 H 98 02/06/22 19:06 97 H 98 <Mary Whitney MD - Last Filed: 02/07/22 08:12> Laboratory Results Laboratory Results - last 24 hr 02/06/22 02/06/22 02/06/22 06:27 19:32 Unknown WBC RBC Hgb Hct MCV MCH MCHC RDW Std Deviation RDW Coeff of Nan Plt Count MPV Immature Gran % (Auto) Neut % (Auto) Lymph % (Auto) [place] % (Auto) Eos % (Auto) Baso % (Auto) Neut # (Auto) Lymph # (Auto) [place] # (Auto) Eos # (Auto) Baso # (Auto) Immature Gran # (Auto) Troponin I High Sens 8.7 SARS-CoV-2 (PCR) NEGATIVE Influenza Type A (PCR) Negative Influenza Type B (PCR) Negative RSV (RT-PCR) Negative Blood Type O Positive Antibody Screen NEGATIVE Crossmatch See Detail 02/07/22 06:18 WBC 7.57 RBC 3.78 L Hgb 9.6 L Hct 28.2 L MCV 74.6 L MCH 25.4 MCHC 34.0 RDW Std Deviation 43.1 RDW Coeff of Nan 15.6 H Plt Count 223 MPV 9.5 Immature Gran % (Auto) 0.1 Neut % (Auto) 76.0 Lymph % (Auto) 13.2 [place] % (Auto) 9.6 Eos % (Auto) 0.8 Baso % (Auto) 0.3 Neut # (Auto) 5.75 Lymph # (Auto) 1.00 L [place] # (Auto) 0.73 H Eos # (Auto) 0.06 Baso # (Auto) 0.02 Immature Gran # (Auto) 0.01 Troponin I High Sens SARS-CoV-2 (PCR) Influenza Type A (PCR) Influenza Type B (PCR) RSV (RT-PCR) Blood Type Antibody Screen Crossmatch Diagnostic Findings Impressions Venous Doppler Study 02/06/22 09:32 BILATERAL LOWER EXTREMITY VENOUS DOPPLER HISTORY: Shortness of breath. Recent . Assess for DVT. COMPARISON STUDY: None. FINDINGS: There is normal compressibility, flow, and augmentation within the bilateral lower extremity deep venous systems. IMPRESSION: No DVT within the right or left lower extremity. ACT 112: Negative or not required by law. Electronically signed by: Raul Vela M.D. 02/06/2022 11:08 AM Chest CTA 02/06/22 11:17 CT ANGIOGRAM OF THE CHEST CLINICAL HISTORY: Atypical chest pain. Vomiting and dyspnea. COMPARISON STUDY: Chest CT dated 12/29/2021. TECHNIQUE: Following the IV administration of 120 cc of Optiray 320, CT angiogram of the chest was performed from the upper abdomen to the thoracic inlet utilizing the pulmonary embolus protocol. Images are reviewed in the axial, sagittal, and coronal planes. 3-D MIPS images are created and assessed. IV contrast was administered without complication. A dose lowering technique was utilized adhering to the principles of ALARA. The examination is significantly degraded by motion artifact. CT DOSE: 687.62 mGy.cm FINDINGS: Thyroid: Mildly enlarged and heterogeneous. Thoracic aorta: The thoracic aorta is normal in caliber and demonstrates standard 3-vessel arch anatomy. No dissection is seen. Pulmonary vasculature: The pulmonary trunk is dilated, measuring 3.4 cm in diameter. This suggests pulmonary artery hypertension. There are no filling defects identified in main, lobar, or proximal segmental pulmonary branches to suggest pulmonary embolus. Evaluation of the segmental and subsegmental pulmonary vessels is significantly degraded by motion artifact. Heart: The heart is enlarged noting a small pericardial effusion. Lungs and pleural spaces: Evaluation of the lung parenchyma is compromised by motion artifact. No airspace consolidation typical for pneumonia or pleural effusion is identified. Significant dependent atelectasis is noted at the lung bases. The trachea and central airways appear clear. Mediastinum: There is no mediastinal lymphadenopathy. Mont[place]: Clear. Axillae: Shotty axillary lymph nodes are similar to previous. Upper abdomen: There are foci of intraperitoneal free air in the upper abdomen. There is hepatomegaly. The spleen is mildly enlarged measuring 13.7 cm in length. There is a small hiatal hernia. Skeletal structures: No lytic or blastic bony lesions are seen. IMPRESSION: 1. Motion compromised examination. 2. Intraperitoneal free air is seen in the upper abdomen. This is nonspecific and may be related to recent surgery. Perforated viscus would be impossible to exclude and clinical correlation will be required. 3. There is no evidence of central pulmonary embolus in the main, lobar, or proximal segmental pulmonary arteries. Evaluation of the segmental and subsegmental branches is significantly degraded by motion artifact. 4. Dependent atelectasis with no airspace consolidation typical for pneumonia or pleural effusion. 5. Cardiomegaly and small pericardial effusion with evidence of pulmonary artery hypertension. 6. Hepatosplenomegaly. ACT 112: Negative or not required by law. Electronically signed by: John Castillo M.D. 02/06/2022 1:39 PM Medications Administered Albuterol (Albuterol Hfa 8 Gm Inhaler) 2 puffs INH Q4 PRN PRN Reason: Wheezing Stop: 03/08/22 11:59 Last Admin: 02/06/22 11:34 Dose: 2 puffs Documented by: [id number] Docusate Sodium (Docusate Sodium 100 Mg Cap) 100 mg PO DAILY@ [facility] Stop: 03/08/22 20:59 Last Admin: 02/06/22 21:26 Dose: 100 mg Documented by: [id number] Lactated Ringer's (Lr) 1,000 mls @ 125 mls/hr IV .Q8H [facility] Stop: 03/08/22 09:38 Last Admin: 02/06/22 20:45 Dose: 125 mls/hr Documented by: [id number] Ibuprofen (Ibuprofen 600 Mg Tab) 600 mg PO Q4H PRN PRN Reason: Pain Stop: 03/09/22 01:43 Last Admin: 02/07/22 01:43 Dose: 600 mg Documented by: [id number] Oxycodone/Acetaminophen (Oxycodone/Acetaminophen 5mg/325mg Tab) 1 - 2 tab PO Q4H PRN PRN Reason: Pain Stop: 02/21/22 01:43 Last Admin: 02/07/22 01:41 Dose: 1 tab Documented by: [id number] Simethicone (Simethicone 80 Mg Chew) 80 mg PO DAILY@,,, [facility] Stop: 03/08/22 12:59 Last Admin: 02/06/22 21:26 Dose: 80 mg Documented by: [id number] Admin: 02/06/22 18:50 Dose: 80 mg Documented by: [id number] Admin: 02/06/22 14:58 Dose: Not Given Documented by: [id number] <Mary Whitney MD - Last Filed: 02/07/22 08:12> Co-Signing Physician Notes Resident Physician Supervision Note: I interviewed and examined the patient. Discussed with Dr. Romo and agree with findings and plan as documented in the note. Any exceptions or clarifications are listed here: The plans listed above by diagnosis are my own. This patient had a stressful day yesterday with discovery of heart condition in her [place] [facility] [place] 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 The reportedly continues to be on beta blockers and prostaglandins and has ductal-dependent circulation at this time, but surgery is not planned. Mom is hoping to join the tomorrow, and is finding accommodations at the [facility]. For her own care, the patient has been started on prophylactic lovenox daily as per the plan made based on her known family history of DVT/PE and her own questionable testing for Protein S deficiency (not likely valid as it was done during ). SCD's and ambulation continue. Monroe experienced chest pressure during the later portions of her which she expressed to the anesthesiology personnel but I was not aware of. She then arrived in her recovery room and I was called by Erika Chandler to make me aware of her symptoms, which had increased to include cough, and her vitals which included desaturation to the 80s. A full workup ensued which showed Viral swab: negative, EKG: sinus arrhythmia (not new - this patient has been seen for workup of same most recently in 2020 and did not comply with recommended testing), US of LE's (no DVT), CT of chest (no PE but motion artifact means they cannot r/o tiny ones; cardiomegaly and enlarged pulmonary trunk and cardiac effusion noted), Echocardiogram (good ejection fraction, likely chronic ventricular wall thickening, no obvious pulmonary hypertension based on estimates from tricuspid regurg volumes, trace and likely physiologic effusion - essentially reassuring without cardiomyopathy, and more likely chronic cardiac changes r/t obesity and genetics). As of this morning the patient has experienced near-complete resolution of her coughing and chest pressure, has no shortness of breath, and was able to wean off all supplemental oxygen while maintaining >95% saturations. I continue to feel it is important that she follow up with cardiology , and lifestyle changes will surely be merited, especially given her strong family history of DVT/PE/sudden cardiac . We have now learned through investigation of her symptoms in the foregoing 24 hours that the patient's biological sister is on the heart transplant list due to hypertrophic cardiomyopathy, and now given the heart findings on her infant as well, it becomes clear that Monroe needs to consider how she can maximize her cardiovascular health to protect her longevity. But at this moment, there does not seem to be an acute event. I anticipate she can be discharged to home either this afternoon or early tomorrow morning. Would like to see passage of flatus, if possible, and since she's not planning to go to [place] until tomorrow would want to take at least a little more than 24 hours to monitor her after her surgical delivery to ensure she's as safe as possible to travel. It's worth noting that the size of her and placenta may mean she faced a [id number] change in her weight, her blood volume, and her cardiovascular parameters immediately upon delivery as compared to the average female. Documented By: Mary Whitney MD, FACOG Resident Activity Tracking <Cristina Romo DO - Last Filed: 02/07/22 07:20> Resident Involvement: Resident Care Provided Care Provided: Adult Hospital Medicine and OB Delivery
[2022-02-07] MEDS ORDERED: PRENATAL VITAMIN 1 TAB PO SCH (08:00)
[2022-02-07] MEDS ORDERED: FERROUS SULFATE 325 MG TAB PO SCH (08:00)
[2022-02-07] MEDS: DOCUSATE SODIUM 100 MG CAP PO SCH (08:27)
[2022-02-07] MEDS: SIMETHICONE 80 MG CHEW PO SCH ×3 (08:27→17:19)
[2022-02-07] MEDS ORDERED: guaiFENesin 600 MG TABCR PO SCH (09:00)
[2022-02-07] MEDS ORDERED: ENOXAPARIN INJ 40 MG/0.4 ML SYR SQ SCH (09:00)
[2022-02-07] MEDS ORDERED: SERTRALINE HCL 50 MG TABLET PO SCH (12:30)
--- NOTE | 2022-02-07 12:37 | Psychiatric Consultation ---
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 Interested in meds and therapy to "get ahead of it" this time. Is currently pumping breast milk as from child per nursing wants to try to breast feed. (1) Post depression: would recommend low dose SSRI, Zoloft 25 mg for at 2 weeks prior to increase to ensure not activating given family hx bipolar and unclear med hx. liaison working on outpatient referrals for therapy and medication management Dr. Pablo updated re: recommendations and likely need for bridging care as psych in community >1 month Risk Factors Assessment Do You Have Access To A Gun?: No Psych History Identifying Data 21 yo female from [place], s/p delivery of 4th child on 02/06/22, consult by Dr. Whitney for evaluation and recs for hx of depression. Chief Complaint hx of post depression History of Present Illness Patient is currently sleeping very soundly, was able to complete the [place] Depression Scale with liaison this am scoring 2330. Mother and baby have had complications following delivery with patient requiring supplemental oxygen at one point and additional consultation for possible cardiopulmonary issue (strong family hx blood clots). Concern for HLHS in so transferred/not at bedside. Per discussion with liaison: She was last on meds at age 12 [address] Pettit; says they helped but does not have any recollection of what they were, but required a few different trials. She does endorse PPD after of her 2 y/o daughter. Says it was "really bad but I just got through it...but I dont want to go through that again this time." She has consistently denied SI/HI/walsh and although there is a prior dx of bipolar on her med list she states that she had lability as a teenager but does not feel she was officially diagnosed. Past Psychiatric History Outpatient Services: none currently, last as teen Previous Psych Admissions: none Do You Have Access To A Gun?: No History of Previous Suicide Attempt: No Past Medication Trials: not sure Allergies Allergy/AdvReac Type Severity Reaction Status Date / Time house dust Allergy Mild ITCHY Verified 02/06/22 08:22 EYES, RUNNY NOSE cat dander Allergy Unknown ITCHY EYES Verified 02/06/22 06:31 taylor Allergy Unknown LIP/THROAT Verified 02/06/22 06:31 SWELLING lamotrigine Allergy Unknown rash Verified 02/06/22 06:31 mold Allergy Unknown ITCHY Verified 02/06/22 06:31 EYES, RUNNY NOSE guanfacine AdvReac Unknown BECOME OCD Verified 02/06/22 06:31 Home Medications Medication Instructions Recorded Confirmed Type albuterol sulfate 90 mcg/actuation 1 - 2 puff INHALATION DIRECTED 05/21/19 02/05/22 History aerosol inhaler PRN #1 gm [id number] 1 mg 1 tab PO DAILY 11/28/21 02/06/22 History tablet Family History her mother and father have been diagnosed as bipolar, and that her mother also carries a schizophrenic diagnosis. Personal History Beliefs That Will Affect Care: None Patient History Medical History Acid reflux ADHD Asthma CONTROLLED Back problem Bipolar disorder Depression Gestational diabetes Heartburn during History of COVID-19 - MUTLIPLE TIMES IN HX PER PT- NO NOTED POSITIVE COVID TESTS ON FILE IN [facility] AND [facility] IN THE PAST 90 DAYS - PT HAS MILD COUGH AND CONGESTION, RUNNY NOSE CURRENTLY- PT REPORTS BELIEVES SYMPTOMS TO BE UNRELATED TO HX COVID History of recent hospitalization ADMITTED TO [facility] 01/29/22 SECONDARY TO DECREASED MOVEMENT- FELT SECONDARY TO DEHYDRATION History of seizures as a child AGE 8, HX MEDS, LAST SEIZURE 8 YR OLD History of treatment by mental health professional PT REPORTS MULTIPLE MENTAL HEALTH HX DX ... 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 - SEEN BY [facility] 03/2021- RECOMMENDED ECHO AND CV GENETIC TESTING (PRESUMED PT NEVER HAD DONE- NO RESULTS IN [facility]). PER CARDIO NOTE 03/2021- HOLTER REPORT PENDING (NO RESULTS AVAILABLE) - NO FURTHER APPOINTMENTS DUE TO COVID 19 AND PROJECT DEVELOPMENT LEADER. Past medical history not known due to adoption PT ADOPTED, FAMILY MED HX KNOWLEDGE LIMITED Post-traumatic stress disorder SOB (shortness of breath) on exertion Surgical History History of foot surgery RIGHT S/P section HX X3 Immaculata teeth removed Family History Mother Deep vein thrombosis Clotting disorder Pulmonary embolism Sister Deep vein thrombosis Heart disease Hypertension Grandmother Breast cancer Denies family history of Ovarian cancer Prostate cancer Colorectal cancer Social History Smoking Status: Former smoker Tobacco Type: Cigarettes packs per day: 0.5; Smoking End Date: BEFORE I WAS - QUIT SOON I FOUND OUT; Second Hand Exposure: No; Hx Alcohol Use: No Hx Substance Use: No Preferred Language: Luxembourgish Communication Ability: Effective Regional Environmental Manager Required: No Beliefs That Will Affect Care: None marital status: Single marital status details: Sumit Ortiz- [phone] Current Living Situation: Other Current Living Situation Comment: Lives with 3 daughters current occupational status: unemployed current occupation: [employer] position Other Information That Helps Us Care for You: No other: adopted Feels Safe at Home: Yes Safety Concerns: Feels Safe At This Time Assistive Devices: None Assistive Devices Comment: SUPPOSED TO WEAR GLASSES..HAVEN'T GOT NEW PRESCRIPTION YET Physical Exam Psychiatric: deferred due to extreme fatigue Vital Signs (Past 24 Hours): Last Vital Signs Temp 37.1 C 02/07/22 08:00 Pulse 100 H 02/07/22 08:00 Resp 18 02/07/22 08:00 BP 120/74 02/07/22 08:00 Pulse Ox 96 02/07/22 08:00 Review of Systems Other Results & Data (PSY) Laboratory Results 02/07/22 02/06/22 Range/Units 06:18 19:32 WBC 7.57 (4.8-10.8) K/uL RBC 3.78 L (4.2-5.4) M/uL Hgb 9.6 L (12.0-16.0) g/dL Hct 28.2 L (37-47) % MCV 74.6 L (80-100) fL MCH 25.4 (25-34) pg MCHC 34.0 (32-36) g/dL RDW Std Deviation 43.1 (36.4-46.3) fL RDW Coeff of Nan 15.6 H (11.5-14.5) % Plt Count 223 (130-400) K/uL MPV 9.5 (7.4-10.4) fL Immature Gran % (Auto) 0.1 % Neut % (Auto) 76.0 % Lymph % (Auto) 13.2 % [place] % (Auto) 9.6 % Eos % (Auto) 0.8 % Baso % (Auto) 0.3 % Neut # (Auto) 5.75 (1.4-6.5) K/uL Lymph # (Auto) 1.00 L (1.2-3.4) K/uL [place] # (Auto) 0.73 H (0.11-0.59) K/uL Eos # (Auto) 0.06 (0-0.5) K/uL Baso # (Auto) 0.02 (0-0.2) K/uL Immature Gran # (Auto) 0.01 (0.00-0.02) K/uL Troponin I High Sens 8.7 (0-14) pg/ml Medications Administered Albuterol (Albuterol Hfa 8 Gm Inhaler) 2 puffs INH Q4 PRN PRN Reason: Wheezing Stop: 03/08/22 11:59 Last Admin: 02/06/22 11:34 Dose: 2 puffs Documented by: [id number] Diphenhydramine HCl (Diphenhydramine Capsule 25 Mg Cap) 25 mg PO QID PRN PRN Reason: Itching Stop: 03/09/22 01:43 Last Admin: 02/07/22 08:27 Dose: 25 mg Documented by: [id number] Docusate Sodium (Docusate Sodium 100 Mg Cap) 100 mg PO DAILY@, [facility] Stop: 03/08/22 20:59 Last Admin: 02/07/22 08:27 Dose: 100 mg Documented by: [id number] Admin: 02/06/22 21:26 Dose: 100 mg Documented by: [id number] Enoxaparin Sodium (Enoxaparin Inj 40 Mg/0.4 Ml Syr) 40 mg SQ QAM [facility] Stop: 03/09/22 08:59 Last Admin: 02/07/22 09:45 Dose: 40 mg Documented by: [id number] Ferrous Sulfate (Ferrous Sulfate 325 Mg Tab) 325 mg PO DAILY@08 [facility] Stop: 03/09/22 07:59 Last Admin: 02/07/22 08:27 Dose: 325 mg Documented by: [id number] Guaifenesin (Guaifenesin 600 Mg Tabcr) 600 mg PO Q12 [facility] Stop: 03/09/22 08:59 Last Admin: 02/07/22 09:45 Dose: 600 mg Documented by: [id number] Lactated Ringer's (Lr) 1,000 mls @ 125 mls/hr IV .Q8H [facility] Stop: 03/08/22 09:38 Last Admin: 02/06/22 20:45 Dose: 125 mls/hr Documented by: [id number] Ibuprofen (Ibuprofen 600 Mg Tab) 600 mg PO Q4H PRN PRN Reason: Pain Stop: 03/09/22 01:43 Last Admin: 02/07/22 12:30 Dose: 600 mg Documented by: [id number] Admin: 02/07/22 08:27 Dose: 600 mg Documented by: [id number] Admin: 02/07/22 01:43 Dose: 600 mg Documented by: [id number] Oxycodone/Acetaminophen (Oxycodone/Acetaminophen 5mg/325mg Tab) 1 - 2 tab PO Q4H PRN PRN Reason: Pain Stop: 02/21/22 01:43 Last Admin: 02/07/22 12:30 Dose: 2 tab Documented by: [id number] Admin: 02/07/22 08:28 Dose: 2 tab Documented by: [id number] Admin: 02/07/22 01:41 Dose: 1 tab Documented by: [id number] Prenat Multivit/Sales And Marketing Associate/Iron/Folic Ac ( Vitamin 1 Tab) 1 tab PO DAILY@08 [facility] Stop: 03/09/22 07:59 Last Admin: 02/07/22 08:27 Dose: 1 tab Documented by: [id number] Simethicone (Simethicone 80 Mg Chew) 80 mg PO DAILY@08,13,17,21 [facility] Stop: 03/08/22 12:59 Last Admin: 02/07/22 12:30 Dose: 80 mg Documented by: [id number] Admin: 02/07/22 08:27 Dose: 80 mg Documented by: [id number] Admin: 02/06/22 21:26 Dose: 80 mg Documented by: [id number] Admin: 02/06/22 18:50 Dose: 80 mg Documented by: [id number] Admin: 02/06/22 14:58 Dose: Not Given Documented by: [id number] Coding Level of Care Code 60173 Inpt Consult Level 1 Diagnoses Post depression F53.0
--- NOTE | 2022-02-07 15:26 | Communication Note ---
Date of Service: February 07, 2022 Visited with patient this afternoon in her room. She is sitting upright in bed. Looks well and talking to someone on phone. She notes +flatus, eating, voiding and ambulating. Denies pain issues, but does admit she is sore but says "they were pushing on me alot" at delivery. She did meet with Dr. See who was in touch with me today. I did order the zoloft but patient explains that she has used that med in past with Dr. Pettit and it does not work for her. She notes she has made an effort on her own to get therapy appts and has started that process locally. She is not having HI or SI and does not just want to go a medication she does not think would help. She would rather start with a psychiatrist and try to get records of her prior care and find something they think would work. She says she has an awareness of pp depression this time and knows she does not want to get there again as she did with the last . She agrees with being proactive in this regard but does not feel she wants to start a med at this time. I asked her about her childcare when she was having surgery as I am aware her sister from [place] was with her. She explained that the FOB was supposed to come for delivery but he "bailed" and instead took her younger 2 kids to watch and they got a family friend to watch the older daughter and then her sister could attend the delivery with her. She notes another sister apparently from [place] has come to [place] and will be with her for 2wks and that is who currently is watching her older daughter and will go with her to the [facility] at [facility] as her son is currently in NICU there. She admits yesterday was "rough" but that she is doing better today and updated me on what she knows of the baby's status, although says she hasn't called the NICU in a while. She is aware I would prefer for her to stay overnight but she expresses desire to leave later today. She notes her mom is coming to pick her up from hospital and that she is taking her and her sister to [facility] in am. She wants to go home this evening to pack and get ready for possible long stay at [facility]. She is known to our practice and has known transportation issues and childcare coverage issues that has limited her ability to be compliant with care in past. I understood based on her limited resources for transportation that she really needs the help of her mom who will be driving her. I recommend the patient stay and make sure she tolerates dinner and then ok to go home. I sent prescriptions for her Lovenox and percocet (after checking on PAPDMP-no issues) to her pharmacy. I did not send the zoloft based on our discussion but rec patient make 2wk pp check up with us as we will need to see how her mood is doing. If we have to adjust that based on when she is here given will be at [facility] for a while we can but rec that appt be within 1-2wks. She verbalized understanding. She again acknowledges that she has very real concerns about pp depression but right now she says she is "doing ok." Spoke to nursing who notes no concerns for bleeding.Vital signs noted.
--- NOTE | 2022-02-07 16:15 | Cardiology Progress Note ---
Date of Service February 07, 2022 Assessment & Plan (1) Acute respiratory distress: (2) Hypoxia: (3) Chest pain: Plan: ASSESSMENT/PLAN: 1. Acute respiratory distress: Resolved. No further shortness of breath and has normal oxygen saturation on room air. Her breathing significantly improved with supplemental oxygen and inhaler. It is possible that her underlying asthma played a role. No obvious cardiac etiology at this time. 2. Hypoxia: Resolved. Feels much better. 3. Chest pain: High sensitivity troponin was normal approximately 10 hours after initial event. There was no intraoperative myocardial infarction. 4. Disposition: No further cardiac evaluation necessary at this time. Cardiology will sign off. Please call with any other questions or concerns. Admission and Anticipated Discharge Date Admission Date: February 06, 2022 Subjective Patient was seen this afternoon. Supplemental oxygen has been weaned off. She denies shortness of breath, recurrent chest pain, syncope, near-syncope, palpitations, or worsening edema. She is hoping to be discharged today. She has received news that her son is doing better. Her friend was at the bedside. Review of systems: As above. Physical Exam Physical Exam: Gen.: No acute distress. Alert and oriented. HEENT: Anicteric sclera. Neck: Thick neck but no appreciable JVD. Cardiac: No ventricular heave. Regular with heart rate in the 60s to 70s. Normal S1-S2. No murmurs, rubs, or gallops. Pulmonary: Decreased breath sounds throughout, but otherwise clear to auscultation bilaterally without wheezes, rales, or rhonchi. Abdomen: Soft, nondistended. No bruits noted. Extremities: 2+ radial pulses bilaterally. 2+ posterior tibialis pulses bilaterally. No pitting edema or cyanosis. Psychiatric: Affect appears appropriate. Results & Data ([facility]) Vital Signs (Past 12 Hours) Vital Signs Temp Pulse Pulse Resp BP BP Pulse Ox 02/07/22 15:06 101 H 16 121/72 99 02/07/22 08:00 37.1 C 100 H 18 120/74 96 02/07/22 05:00 37.1 C 95 H 95 H 20 131/75 131/75 97 Laboratory Results Laboratory Results - last 24 hr 02/06/22 02/07/22 19:32 06:18 WBC 7.57 RBC 3.78 L Hgb 9.6 L Hct 28.2 L MCV 74.6 L MCH 25.4 MCHC 34.0 RDW Std Deviation 43.1 RDW Coeff of Nan 15.6 H Plt Count 223 MPV 9.5 Immature Gran % (Auto) 0.1 Neut % (Auto) 76.0 Lymph % (Auto) 13.2 [place] % (Auto) 9.6 Eos % (Auto) 0.8 Baso % (Auto) 0.3 Neut # (Auto) 5.75 Lymph # (Auto) 1.00 L [place] # (Auto) 0.73 H Eos # (Auto) 0.06 Baso # (Auto) 0.02 Immature Gran # (Auto) 0.01 Troponin I High Sens 8.7 Medications Administered Current Inpatient Medications Albuterol (Albuterol Hfa 8 Gm Inhaler) 2 puffs INH Q4 PRN PRN Reason: Wheezing Stop: 03/08/22 11:59 Last Admin: 02/06/22 11:34 Dose: 2 puffs Documented by: Benzocaine (Benzocaine 20% Aer Spr 82.5 Gm Can) 1 appln EXT UD PRN PRN Reason: use on skin as needed Stop: 03/08/22 09:38 Diphenhydramine HCl (Diphenhydramine Capsule 25 Mg Cap) 25 mg PO QID PRN PRN Reason: Itching Stop: 03/09/22 01:43 Last Admin: 02/07/22 08:27 Dose: 25 mg Documented by: Diphenhydramine HCl (Diphenhydramine 50 Mg/Ml Vial) 25 mg IV QID PRN PRN Reason: Itching Stop: 03/09/22 01:43 Docusate Sodium (Docusate Sodium 100 Mg Cap) 100 mg PO DAILY@, [facility] Stop: 03/08/22 20:59 Last Admin: 02/07/22 08:27 Dose: 100 mg Documented by: Enoxaparin Sodium (Enoxaparin Inj 40 Mg/0.4 Ml Syr) 40 mg SQ QAM [facility] Stop: 03/09/22 08:59 Last Admin: 02/07/22 09:45 Dose: 40 mg Documented by: Ferrous Sulfate (Ferrous Sulfate 325 Mg Tab) 325 mg PO DAILY@08 [facility] Stop: 03/09/22 07:59 Last Admin: 02/07/22 08:27 Dose: 325 mg Documented by: Guaifenesin (Guaifenesin 600 Mg Tabcr) 600 mg PO Q12 GEORGE Stop: 03/09/22 08:59 Last Admin: 02/07/22 09:45 Dose: 600 mg Documented by: Hydrocortisone (Hydrocortisone Acetate 25 Mg Supp) 25 mg [place] BID PRN PRN Reason: Hemorrhoids Stop: 03/08/22 09:38 Lactated Ringer's (Lr) 1,000 mls @ 125 mls/hr IV .Q8H GEORGE Stop: 03/08/22 09:38 Last Admin: 02/06/22 20:45 Dose: 125 mls/hr Documented by: Promethazine HCl 25 mg/ Sodium (Chloride) 51 mls @ 204 mls/hr IV Q4H PRN PRN Reason: Nausea And Vomiting Stop: 03/09/22 01:43 Ibuprofen (Ibuprofen 600 Mg Tab) 600 mg PO Q4H PRN PRN Reason: Pain Stop: 03/09/22 01:43 Last Admin: 02/07/22 12:30 Dose: 600 mg Documented by: Ketorolac Tromethamine (Ketorolac 30 Mg/Ml Vial) 30 mg IV Q6H PRN PRN Reason: Pain Stop: 02/12/22 01:43 Magnesium Hydroxide (Magnesium Hydroxide Susp 30 Ml Udc) 30 ml PO HS PRN PRN Reason: Constipation Stop: 03/08/22 09:38 Meperidine HCl (Meperidine Hcl 50 Mg/Ml Carp) 50 - 75 mg IV Q4H PRN PRN Reason: Pain Stop: 02/21/22 01:43 Ondansetron HCl (Ondansetron Inj 2 Mg/Ml 2 Ml Vial) 4 mg IV Q4H PRN PRN Reason: Nausea And Vomiting Stop: 03/09/22 01:43 Oxycodone/Acetaminophen (Oxycodone/Acetaminophen 5mg/325mg Tab) 1 - 2 tab PO Q4H PRN PRN Reason: Pain Stop: 02/21/22 01:43 Last Admin: 02/07/22 12:30 Dose: 2 tab Documented by: Prenat Multivit/[place]/Iron/Folic Ac ( Vitamin 1 Tab) 1 tab PO DAILY@08 [facility] Stop: 03/09/22 07:59 Last Admin: 02/07/22 08:27 Dose: 1 tab Documented by: Sennosides (Senna 8.6 Mg Tab) 17.2 mg PO HS PRN PRN Reason: Constipation Stop: 03/08/22 09:38 Sertraline HCl (Sertraline Hcl 50 Mg Tablet) 25 mg PO QAM [facility] Stop: 03/09/22 12:29 Last Admin: 02/07/22 14:02 Dose: Not Given Documented by: Simethicone (Simethicone 80 Mg Chew) 80 mg PO DAILY@08,13,17,21 [facility] Stop: 03/08/22 12:59 Last Admin: 02/07/22 12:30 Dose: 80 mg Documented by: PG Care Time/CCT Total # of Minutes Spent Total Time Spent with Patient: Total time spent is greater than 50% in coordination of care (as documented) at patient's floor/unit and/or counseling patient: Coding Level of Care Code 22315 Subseq Hosp Care Lvl 3 Diagnoses Acute respiratory distress R06.03 Hypoxia R09.02 Chest pain R07.9
--- NOTE | 2022-02-08 06:02 | Electrocardiogram Report ---
Test Reason : Blood Pressure : / mmHG Vent. Rate : 098 BPM Atrial Rate : 098 BPM P-R Int : 164 ms QRS Dur : 080 ms QT Int : 332 ms P-R-T Axes : 073 063 048 degrees QTc Int : 423 ms Normal sinus rhythm Poor R wave progression, consider anterior DC vs. lead placement vs. LVH Abnormal ECG When compared with ECG of 06-FEB-2022 10:30, No significant change was found Confirmed by Hector Stanley ([id number]) on 02/08/2022 6:02:02 AM Referred By: Mary Whitney Confirmed By:Hector Stanley
--- NOTE | 2022-02-08 16:51 | Discharge Summary ---
Date of Service February 08, 2022 Discharge Data Consultations 02/06/22 06:14 Consult Anesthesiology Stat 02/06/22 09:06 Consult Psychiatry Routine 02/06/22 14:51 Consult Cardiology Stat Procedures Performed Operation Date: 02/06/22 07:30 Actual Procedures p Section in LD (Delivery of Baby through Abdominal Incision); delivery of live male child at 0814(Not Applicable) - Mary Whitney MD s Post Tubal Ligation Labor & Deliv - Mary Whitney MD Hospital Course (1) Encounter for care and examination after delivery: Admitted for 4th and BTL, at 39wk due to known thin lower uterine segment, also GDM noncompliant with care, maternal obesity, and desiring steril ization. performed and entire TOSHA as a window was noted. 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 Placental also grossly enlarged at 980gm. Modified [place] tubal completed. 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 No cardiac surgery performed as of DOL2. After delivery, patient herself began experiencing desaturations and dizziness. Lengthy workup including EKG (sinus a rrhythymia - previously known in this patient but she'd been noncompliant with workup in 2020), LE dopplers (no DVT), CT Chest (no large PE, but cardiomegaly with pulmonary trunk enlargement and cardiac effusion), echocardiogram (cardiomegaly, no significant PH or pericardial effusion). Cardiology consult completed and as patient clinically improved rapidly, no definitive cardiac cause for her initial symptoms was found. Differential includes asthma attack (she was given an inhaler), decompensation as patient auto-transfused an unusually large amount of uterine blood during involution at delivery and is generally deconditioned/obese, fatigue (the patient was so exhausted from her life at home that she was falling asleep mid-conversation frequently here on L&D). By POD1 she was started on planned prophylactic dose lovenox for strong family hx of DVT/PE and personal risk factors of obesity and status. She was recovering well from a surgical standpoint. She was seen by psychiatry and offered zoloft, but declined Rx. She was discharged late on POD1 at patient's insistence to facilitate her visiting the infant at [facility]. Planning 2 week follow up in office. Coding Level of Care Code None Diagnoses Encounter for care and examination after delivery Z39.2
== END 2022-02-07 19:40 | disposition home or self-care (01) | DRG 784 ==
LOC: 4S1 06:20 → 4E2 22:39 → EDSTATUS 02-08 09:00
PROC: M.PPTLD (2022-02-06 07:30)
DX: R09.02 Hypoxemia; R07.9 Chest pain, unspecified; F90.1 Attention-deficit hyperactivity disorder, predominantly hyperactive type; Z88.8 Allergy status to other drugs, medicaments and biological substances; J30.81 Allergic rhinitis due to animal (cat) (dog) hair and dander; O99.344 Other mental disorders complicating childbirth; J30.89 Other allergic rhinitis; Z91.19 Patient's noncompliance with other medical treatment and regimen; Z37.0 Single live birth; O34.211 Maternal care for low transverse scar from previous cesarean delivery; Z3A.39 39 weeks gestation of pregnancy; O24.429 Gestational diabetes mellitus in childbirth, unspecified control; Z86.16 Personal history of COVID-19; J45.901 Unspecified asthma with (acute) exacerbation; F31.63 Bipolar disorder, current episode mixed, severe, without psychotic features; O99.53 Diseases of the respiratory system complicating the puerperium; F53.0 Postpartum depression; Z91.018 Allergy to other foods; R06.03 Acute respiratory distress; F43.10 Post-traumatic stress disorder, unspecified; Z87.891 Personal history of nicotine dependence

== ENCOUNTER 2023-05-21 10:33 | Inpatient (IN) ==
--- NOTE | 2023-05-21 10:59 | Emergency Department Note ---
Impression & Plan Feeling suicidal Hand Off ED Provider Note HPI: The patient is a 23-year-old female with history of bipolar disorder, anxiety/depression, presents emergency department with suicidal thoughts and suicide attempt this morning. Patient states that she was camping with friends last evening, states that she was feeling very upset throughout the evening because she had the opportunity to FaceTime with one of her daughters yesterday who she no longer has custody of. Patient states has had her feeling very anxious and depressed, she states she drank heavy amounts of alcohol, states at 1 point last evening she hit her head with a rock, she also states that she attempted to d[place] herself in the [place]. Patient states that when she returned home this morning she lacerated herself superficially in the left wrist and attempt to kill herself. Patient states that she then called her friends and told them that she was thinking about trying to kill herself this morning, one of her friends contacted police and the patient was brought to the ED to be assessed. On arrival the patient is alert, she is in no acute distress, she is conversational and cooperative with exam. She is alert and oriented x3 on arrival. ROS: - Per HPI *Outpatient medications and allergy history reviewed. *Pertinent external medical records reviewed. PE: General: Alert HEENT: Normocephalic, trachea midline Eyes: Extraocular eye movement is intact, no scleral erythema Pulmonary: Clear to auscultation bilaterally, no wheezing Cardio: Regular rate and rhythm GI: Abdomen is soft to palpation : No suprapubic tenderness MSK: No evidence of trauma or malformation of the extremities, no edema Skin: No evidence of rash Neuro: Alert, no focal deficits Psychiatric: Cooperative Interventions provided in ED: -Ativan Medical Decision Making: Patient presented to the emergency department with chief complaint of suicidal thoughts and suicide attempt last night and this morning. Patient states she was drinking heavily overnight, stated that she was feeling very depressed and anxious over FaceTime in one of her children who she no longer has custody of yesterday. Patient states that she attempted to drown herself in a larry last night and also attempted to slit her wrist this morning. Police were contacted by a friend when the patient noted to a friend over the phone that she was feeling suicidal. Patient was brought in by police for further management and 302 was filed by police vp digital [employer] social [employer] and crm. Patient is calm and cooperative here in the ED, lab work was obtained, CBC is reassuring, CMP does not show any critical findings, alcohol level is noted to still be elevated currently 130. Patient will require assessment by case management when medically cleared/sober. At this time patient is stating that she would like inpatient psychiatric care on a voluntary basis. Patient is pending case management assessment at the time of my signout to my colleague, Dr. Laughlin, pending ongoing case management evaluation and likely bed search. Consultants: Case management Diagnosis: 1. Suicide attempt 2. Anxiety/depression 3. Alcohol intoxication Disposition: Handoff Arnoldo Tucker DO Emergency Medicine Past Med/Surg History Medical History Acid reflux ADHD Asthma CONTROLLED Back problem Bipolar disorder Depression Gestational diabetes Heartburn during History of COVID-19 - MUTLIPLE TIMES IN HX PER PT- NO NOTED POSITIVE COVID TESTS ON FILE IN [facility] AND S IN THE PAST 90 DAYS - PT HAS MILD COUGH AND CONGESTION, RUNNY NOSE CURRENTLY- PT REPORTS BELIEVES SYMPTOMS TO BE UNRELATED TO HX COVID History of recent hospitalization ADMITTED TO [facility] 01/29/22 SECONDARY TO DECREASED MOVEMENT- FELT SECONDARY TO DEHYDRATION History of seizures as a child AGE 8, HX MEDS, LAST SEIZURE 8 YR OLD History of treatment by mental health professional PT REPORTS MULTIPLE MENTAL HEALTH HX DX ... 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 - SEEN BY [facility] C[facility]IO 03/2021- RECOMMENDED ECHO AND CV GENETIC TESTING (PRESUMED PT NEVER HAD DONE- NO RESULTS IN [facility]). PER CARDIO NOTE 03/2021- H OLTER REPORT PENDING (NO RESULTS AVAILABLE) - NO FURTHER APPOINTMENTS DUE TO COVID 19 AND CROP SPECIALIST. Past medical history not known due to adoption PT ADOPTED, FAMILY MED HX KNOWLEDGE LIMITED Post-traumatic stress disorder SOB (shortness of breath) on exertion Surgical History History of foot surgery RIGHT S/P section HX X3 [place] teeth removed Family History Mother Deep vein thrombosis Clotting disorder Pulmonary embolism Sister Deep vein thrombosis Heart disease Hypertension Grandmother Breast cancer Denies family history of Ovarian cancer Prostate cancer Colorectal cancer Social History Smoking Status: Current some day smoker Tobacco Type: Cigarettes packs per day: 0.5; Second Hand Exposure: No; Do You Dip or Chew Tobacco: No; Hx Alcohol Use: No Hx Substance Use: No Preferred Language: Italian Communication Ability: Effective Health Occupations Teacher Required: No Beliefs That Will Affect Care: None marital status: Single marital status details: Sumit Ortiz- [phone] Current Living Situation: Other Current Living Situation Comment: Lives with 3 daughters current occupational status: unemployed current occupation: [employer] position other: adopted Feels Safe at Home: Yes Assistive Devices: None Allergies Allergies Allergy/AdvReac Type Severity Reaction Status Date / Time house dust Allergy Mild ITCHY Verified 08/08/22 14:21 EYES, RUNNY NOSE cat dander Allergy Unknown ITCHY EYES Verified 08/08/22 14:21 taylor Allergy Unknown LIP/THROAT Verified 08/08/22 14:21 SWELLING lamotrigine Allergy Unknown rash Verified 08/08/22 14:21 mold Allergy Unknown ITCHY Verified 08/08/22 14:21 EYES, RUNNY NOSE guanfacine AdvReac Unknown BECOME OCD Verified 08/08/22 14:21 Home Meds Home Medications Medication Instructions Recorded Confirmed No Known Home Medications 08/08/22 08/08/22 Results & Data (ED) Vital Signs Vital Signs - 24 hr 05/21/23 10:35 05/21/23 12:35 05/21/23 14:00 Temperature 36.6 C Temperature Source Oral Pulse Rate 98 H Respiratory Rate 16 14 14 Respiratory Effort / Characteristics Non-Labored Non-Labored Respiratory Depth Normal Deep Respiratory Pattern Regular Regular Blood Pressure 140/87 Blood Pressure Mean 104 Pulse Oximetry 97 Oxygen Delivery Method Room Air Sepsis Recent Fever Within 48 Hours No Sepsis New/Unexplained Change in Mental Status No Sepsis Action Taken by Nursing No Action Required Laboratory Data 05/21/23 11:03 05/21/23 11:03 Lab Results 05/21/23 05/21/23 05/21/23 Range/Units 11:03 11:03 11:03 WBC 8.71 (4.8-10.8) K/ul RBC 5.04 (4.20-5.40) M/uL Hgb 14.9 (12.0-16.0) g/dl Hct 40.2 (37.0-47.0) % MCV 79.8 L (80.0-100.0) fL MCH 29.6 (25.0-34.0) pg MCHC 37.1 H (32.0-36.0) g/dL RDW Std Deviation 36.1 L (36.4-46.3) fL RDW Coeff of Nan 12.9 (11.5-14.5) % Plt Count 313 (130-400) K/uL MPV 9.5 (9.4-12.4) fL Immature Gran % (Auto) 0.2 % Neut % (Auto) 56.0 % Lymph % (Auto) 37.2 % [place] % (Auto) 5.5 % Eos % (Auto) 0.8 % Baso % (Auto) 0.3 % Neut # (Auto) 4.87 (1.40-6.50) K/uL Lymph # (Auto) 3.24 (1.2-3.4) K/uL [place] # (Auto) 0.48 (0.11-0.59) K/uL Eos # (Auto) 0.07 (0-0.50) K/uL Baso # (Auto) 0.03 (0-0.2) K/uL Immature Gran # (Auto) 0.02 (0.01-0.20) K/uL Sodium 139 (136-145) mmol/L Potassium 3.7 (3.5-5.1) mmol/L Chloride 107 (98-107) mmol/L Carbon Dioxide 21 (21-32) mmol/L Anion Gap 11 (3-11) BUN 10 (6-23) mg/dl Creatinine 0.81 (0.6-1.2) mg/dl Est Cr Clr Drug Dosing Not Reportable Est GFR ( Amer) 117.0 ml/min Est GFR (Non-Af Amer) 100.9 ml/min BUN/Creatinine Ratio 12.3 (10-20) Glucose 106 H (70-99(Fasting)) mg/dl Calcium 9.5 (8.6-10.3) mg/dl Total Bilirubin 0.5 (0.2-1.0) mg/dl AST 22 (13-39) U/L ALT 20 (7-52) U/L Alkaline Phosphatase 59 (34-104) U/L Total Protein 8.5 H (6.0-8.3) gm/dl Albumin 5.1 H (3.4-5.0) gm/dl Globulin 3.4 (2.5-4.0) gm/dl Albumin/Globulin Ratio 1.5 (0.9-2) TSH 0.606 (0.300-4.500) uIu/ml HCG, Qual (Negative) Salicylates (3.0-30) mg/dl Acetaminophen (10-30) ug/ml Ethyl Alcohol mg/dL (<10.0) mg/dl SARS-CoV-2, RNA, NAAT (NEGATIVE) 05/21/23 05/21/23 05/21/23 Range/Units 11:03 11:03 11:03 WBC (4.8-10.8) K/ul RBC (4.20-5.40) M/uL Hgb (12.0-16.0) g/dl Hct (37.0-47.0) % MCV (80.0-100.0) fL MCH (25.0-34.0) pg MCHC (32.0-36.0) g/dL RDW Std Deviation (36.4-46.3) fL RDW Coeff of Nan (11.5-14.5) % Plt Count (130-400) K/uL MPV (9.4-12.4) fL Immature Gran % (Auto) % Neut % (Auto) % Lymph % (Auto) % [place] % (Auto) % Eos % (Auto) % Baso % (Auto) % Neut # (Auto) (1.40-6.50) K/uL Lymph # (Auto) (1.2-3.4) K/uL [place] # (Auto) (0.11-0.59) K/uL Eos # (Auto) (0-0.50) K/uL Baso # (Auto) (0-0.2) K/uL Immature Gran # (Auto) (0.01-0.20) K/uL Sodium (136-145) mmol/L Potassium (3.5-5.1) mmol/L Chloride (98-107) mmol/L Carbon Dioxide (21-32) mmol/L Anion Gap (3-11) BUN (6-23) mg/dl Creatinine (0.6-1.2) mg/dl Est Cr Clr Drug Dosing Est GFR ( Amer) ml/min Est GFR (Non-Af Amer) ml/min BUN/Creatinine Ratio (10-20) Glucose (70-99(Fasting)) mg/dl Calcium (8.6-10.3) mg/dl Total Bilirubin (0.2-1.0) mg/dl AST (13-39) U/L ALT (7-52) U/L Alkaline Phosphatase (34-104) U/L Total Protein (6.0-8.3) gm/dl Albumin (3.4-5.0) gm/dl Globulin (2.5-4.0) gm/dl Albumin/Globulin Ratio (0.9-2) TSH (0.300-4.500) uIu/ml HCG, Qual Negative (Negative) Salicylates < 3.0 L (3.0-30) mg/dl Acetaminophen < 3 L (10-30) ug/ml Ethyl Alcohol mg/dL 130.7 H (<10.0) mg/dl SARS-CoV-2, RNA, NAAT (NEGATIVE) 05/21/23 Range/Units 11:05 WBC (4.8-10.8) K/ul RBC (4.20-5.40) M/uL Hgb (12.0-16.0) g/dl Hct (37.0-47.0) % MCV (80.0-100.0) fL MCH (25.0-34.0) pg MCHC (32.0-36.0) g/dL RDW Std Deviation (36.4-46.3) fL RDW Coeff of Nan (11.5-14.5) % Plt Count (130-400) K/uL MPV (9.4-12.4) fL Immature Gran % (Auto) % Neut % (Auto) % Lymph % (Auto) % [place] % (Auto) % Eos % (Auto) % Baso % (Auto) % Neut # (Auto) (1.40-6.50) K/uL Lymph # (Auto) (1.2-3.4) K/uL [place] # (Auto) (0.11-0.59) K/uL Eos # (Auto) (0-0.50) K/uL Baso # (Auto) (0-0.2) K/uL Immature Gran # (Auto) (0.01-0.20) K/uL Sodium (136-145) mmol/L Potassium (3.5-5.1) mmol/L Chloride (98-107) mmol/L Carbon Dioxide (21-32) mmol/L Anion Gap (3-11) BUN (6-23) mg/dl Creatinine (0.6-1.2) mg/dl Est Cr Clr Drug Dosing Est GFR ( Amer) ml/min Est GFR (Non-Af Amer) ml/min BUN/Creatinine Ratio (10-20) Glucose (70-99(Fasting)) mg/dl Calcium (8.6-10.3) mg/dl Total Bilirubin (0.2-1.0) mg/dl AST (13-39) U/L ALT (7-52) U/L Alkaline Phosphatase (34-104) U/L Total Protein (6.0-8.3) gm/dl Albumin (3.4-5.0) gm/dl Globulin (2.5-4.0) gm/dl Albumin/Globulin Ratio (0.9-2) TSH (0.300-4.500) uIu/ml HCG, Qual (Negative) Salicylates (3.0-30) mg/dl Acetaminophen (10-30) ug/ml Ethyl Alcohol mg/dL (<10.0) mg/dl SARS-CoV-2, RNA, NAAT NEGATIVE (NEGATIVE) Administered Medications Discontinued Medications Ibuprofen (Ibuprofen 600 Mg Tab) 600 mg PO NOW STA Stop: 05/21/23 11:47 Last Admin: 05/21/23 12:11 Dose: 600 mg Documented By: CEK Imaging Data Radiologist's Impression: Head CT 05/21/23 10:59 CT OF THE HEAD WITHOUT CONTRAST CLINICAL HISTORY: Head injury. COMPARISON STUDY: Head CT June 28, 2022. CT DOSE: 1000.44 mGy.cm TECHNIQUE: Helical axial images of the head were obtained without IV contrast. Automated exposure control was utilized for the study. A dose lowering technique was utilized adhering to the principles of ALARA. FINDINGS: No acute intracranial hemorrhage, midline shift or mass effect is present. The ventricular system is unremarkable. The basal cisterns are patent. No extra-axial collections are present. There are no findings to suggest acute dural sinus thrombosis or acute territorial infarct. There is no calvarial fracture. IMPRESSION: 1. No acute intracranial findings. 2. No calvarial fracture. ACT 112: Negative or not required by law. Electronically signed by: Ambrosio Young M.D. 05/21/2023 11:24 AM Discharge Plan Visit Data Chief Complaint: Mental Health Evaluation Stated Complaint: [facility] ED Provider: Arnoldo Tucker Discharge Problem: Feeling suicidal Forms Stand Alone Forms: [facility], Suicide Prevention Resources Prescriptions Prescriptions: No Action No Known Home Medications Referrals Referrals: PCP,NO [Primary Care Provider] -
[2023-05-21 11:25] LABS: Basophils # (auto) 0.03 K/uL (0-0.2); Basophils % (auto) 0.3 %; Eosinophils # (auto) 0.07 K/uL (0-0.50); Eosinophils % (auto) 0.8 %; Hematocrit (blood only) 40.2 % (37.0-47.0); Hemoglobin 14.9 g/dl (12.0-16.0); Immature Granulocytes # (auto) 0.02 K/uL (0.01-0.20); Immature Granulocytes % (auto) 0.2 %; Lymphocytes # (auto) 3.24 K/uL (1.2-3.4); Lymphocytes % (auto) 37.2 %; Mean Corpuscular Hemoglobin 29.6 pg (25.0-34.0); Mean Corpuscular Hgb Conc 37.1 g/dL (32.0-36.0); Mean Corpuscular Volume 79.8 fL (80.0-100.0); Mean Platelet Volume 9.5 fL (9.4-12.4); Monocytes # (auto) 0.48 K/uL (0.11-0.59); Monocytes % (auto) 5.5 %; Neutrophils # (auto) 4.87 K/uL (1.40-6.50); Platelet Count 313 K/uL (130-400); RDW Coefficient of Variation 12.9 % (11.5-14.5); RDW Standard Deviation 36.1 fL (36.4-46.3); Red Blood Count 5.04 M/uL (4.20-5.40); White Blood Count 8.71 K/ul (4.8-10.8)
--- NOTE | 2023-05-21 11:25 | CT Scan Report ---
CT OF THE HEAD WITHOUT CONTRAST CLINICAL HISTORY: Head injury. COMPARISON STUDY: Head CT June 28, 2022. CT DOSE: 1000.44 mGy.cm TECHNIQUE: Helical axial images of the head were obtained without IV contrast. Automated exposure con trol was utilized for the study. A dose lowering technique was utilized adhering to the principles o f ALARA. FINDINGS: No acute intracranial hemorrhage, midline shift or mass effect is present. The ventricular system is unremarkable. The basal cisterns are patent. No extra-axial collections are present. There are no findings to suggest acute dural sinus thrombosis or acute territorial infarct. There is no bonnie varial fracture. IMPRESSION: 1. No acute intracranial findings. 2. No calvarial fracture. ACT 112: Negative or not required by law. Electronically signed by: Ambrosio Young M.D. 05/21/2023 11:24 AM
[2023-05-21 11:39] LABS: Alanine Aminotransferase 20 U/L (7-52); Albumin Globulin Ratio 1.5 (0.9-2); Albumin Level 5.1 gm/dl (3.4-5.0); Alkaline Phosphatase 59 U/L (34-104); Anion Gap 11 (3-11); Aspartate Aminotransferase 22 U/L (13-39); BUN Creatinine Ratio 12.3 (10-20); Bilirubin,Total 0.5 mg/dl (0.2-1.0); Blood Urea Nitrogen 10 mg/dl (6-23); Calcium 9.5 mg/dl (8.6-10.3); Carbon Dioxide 21 mmol/L (21-32); Chloride 107 mmol/L (98-107); Est GFR (Non-African American) 100.9 ml/min; Globulin 3.4 gm/dl (2.5-4.0); Glucose 106 mg/dl (70-99(Fasting)); Potassium 3.7 mmol/L (3.5-5.1); Sodium 139 mmol/L (136-145); Total Protein 8.5 gm/dl (6.0-8.3)
[2023-05-21 11:42] LABS: Acetaminophen < 3 ug/ml (10-30); Salicylate < 3.0 mg/dl (3.0-30)
[2023-05-21 11:46] LABS: Pregnancy Test, Serum Negative (Negative)
[2023-05-21] MEDS ORDERED: IBUPROFEN 600 MG TAB PO STA (11:46)
[2023-05-21] MEDS ORDERED: LORazepam 1 MG TAB PO STA (12:09)
--- NOTE | 2023-05-21 15:50 | Emergency Department Note ---
ED Visit Note The patient was taken in signout from Caitlin at the change of shift. Please see that note for details. The patient was pending psychiatric evaluation for suicidal ideation which occurred last night and today being intoxicated with alcohol. The patient reports feeling depressed surrounding the loss of custody of her children which has been the case for some time. She had reported that she had bash her head with a rock attempting to kill herself and also attempted to drown drown herself and then lastly when she went home and cut her wrists s uperficially which did not require repair. She had sent text messages to friends who contacted authorities and a 302 warrant was filed by police. The patient did arrive intoxicated with alcohol 130 but as she became more sober reported that she did not truly want to kill herself but is interested in inpatient psychiatric treatment. CT of the head was negative for acute abnormalities. UA demonstrates epithelial cells and so likely contamination. COVID-19 RNA, negative. Lab work otherwise unremarkable. The patient is medically cleared. Evaluation by psychiatric home health care case manager pending. Anticipate placement under 201. The patient was accepted to for inpatient psychiatric treatment. 201 was signed. .
[2023-05-21 17:07] LABS: Appearance Urine Cloudy (Clear); Bilirubin Urine Negative (Negative); Blood Urine Negative (Negative); Color Urine Dark Yellow; Epithelial Cell Urine Auto >30 /lpf (0-5); Glucose Urine UA Negative (Negative); Ketones Urine Trace (Negative); Leukocyte Esterase Urine Negative (Negative); Nitrite Urine Negative (Negative); Protein Urine 3+ (Negative); RBC Urine Automated 0-4 /hpf (0-4); Specific Gravity Urine 1.036 (1.000-1.030); Urobilinogen Urine Negative (Negative); pH Urine 5.5 (4.5-7.5)
[2023-05-21 17:42] LABS: Amphetamines+Metham, Urine Neg (Neg); Barbiturates, Urine Neg (Neg); Benzodiazepine, Urine Neg (Neg); Cocaine, Urine Neg (Neg); MDMA (Ecstacy), Urine Neg (Neg); Methadone, Urine Neg (Neg); Opiate, Urine Neg (Neg); Phencyclidine, Urine Neg (Neg)
[2023-05-21 17:55] LABS: Bacteria Urine Automated 1+ (Negative); Mucus Urine Present (None Prsent)
[2023-05-21] MEDS ORDERED: ACETAMINOPHEN 325 MG TAB PO PRN (20:32)
[2023-05-21] MEDS ORDERED: hydrOXYzine HCl 25 MG TAB PO PRN ×2 (20:32)
[2023-05-21] MEDS ORDERED: ALUMINUM/MAGNESIUM SUSP 30 ML UDC PO PRN (20:32)
[2023-05-21] MEDS ORDERED: BISMUTH SUBSALICYLATE LIQD 236 ML PO PRN (20:32)
[2023-05-21] MEDS ORDERED: MAGNESIUM HYDROXIDE SUSP 30 ML UDC PO PRN (20:32)
[2023-05-21] MEDS ORDERED: SODIUM CHLORIDE 0.65% NA SOLN 45 ML (OCEAN) PRN (20:32)
[2023-05-21] MEDS ORDERED: OLANZAPINE 2.5 MG TAB PO PRN (22:28)
[2023-05-21] MEDS ORDERED: LORazepam 1 MG TAB PO PRN (22:39)
[2023-05-21] MEDS: diphenhydrAMINE 2%/ZINC 0.1% CREAM 28.4GM TUBE EXT PRN (23:25)
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
[2023-05-22] MEDS ORDERED: ARIPiprazole 5 MG TAB PO SCH (11:45)
[2023-05-22] MEDS: NALTREXONE HCL 50 MG TAB PO SCH ×2 (17:04→17:09)
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
[2023-05-22] MEDS: diphenhydrAMINE 2%/ZINC 0.1% CREAM 28.4GM TUBE EXT PRN (17:09)
== END 2023-05-22 20:00 | disposition home or self-care (01) | DRG 885 ==
LOC: ED 10:33 → 3S 20:32